=== PATIENT | male | born 1980 | race Caucasian/White ===

== ENCOUNTER 2017-09-09 14:53 | Outpatient (CLI) | payer BC, SELFPAY ==
[2017-09-09 16:39] LABS: Bilirubin Negative (Negative); Blood Negative (Negative); Clarity Clear; Glucose Negative (Negative); Ketones Negative (Negative); Leukocyte Esterase Negative (Negative); Nitrite Negative (Negative); Urobilinogen 0.2 EU/dL (Up TO 0.2)
[2017-09-09 17:51] LABS: Bilirubin, Direct 0.23 mg/dL (0.00-0.20); Bilirubin, Total 1.1 mg/dL (0.2-1.0); LDH 125 U/L (85-227)
[2017-09-11 10:15] LABS: HIV-1/2 Ag & Ab Screen Negative (NEGAT)
[2017-09-11 10:21] LABS: Haptoglobin 45 mg/dL (32-197); Rheumatoid Factor 8 IU/mL (<12.5)
[2017-09-11 10:22] LABS: Hepatitis C Ab w Rflx HCV PCR Negative (NEGAT)
[2017-09-11 12:16] LABS: ANA Interpretation Positive (NEGAT); ANA Titer Pattern SEE COMMENTS
[2017-09-11 14:45] LABS: Copper, Serum 0.72 mcg/mL (0.75-1.45); Zinc, Serum 0.88 mcg/mL (0.66-1.10)
== END 2017-09-09 14:54 ==
PROVIDERS: PCP Nurse Practitioner; Visit Provider Nurse Practitioner
DX: D69.6 Thrombocytopenia, unspecified (principal)
CPT/HCPCS: 36415; 86803; 87389; 81003; 82247; 82248; 82525; 83010; 83615; 84630; 86038; 86431

== ENCOUNTER 2017-10-09 16:45 | Outpatient (REF) | payer BC, SELFPAY ==
[2017-10-09 22:15] LABS: Anion Gap 6.9 mmol/L (3-11); BUN 15 mg/dL (7-18); CO2 29.1 mmol/L (21.0-32.0); CREATININE 1.13 mg/dL (0.70-1.30); Calcium 8.9 mg/dL (8.5-10.1); Chloride 105 mmol/L (98-107); Folate 11.7 ng/mL (8.6-20.0); Glucose 91 mg/dL (70-100); Potassium 3.8 mmol/L (3.5-5.1); Sodium 141 mmol/L (136-145)
== END 2017-10-09 16:46 ==
LOC: NCHCN 16:45
PROVIDERS: PCP Nurse Practitioner; Visit Provider Nurse Practitioner
DX: R00.2 Palpitations (principal); E87.6 Hypokalemia; E61.0 Copper deficiency; D69.6 Thrombocytopenia, unspecified
CPT/HCPCS: 80048; 82746

== ENCOUNTER 2017-10-16 16:11 | Outpatient (REF) | payer BC, SELFPAY ==
[2017-10-20 14:08] LABS: Helicobacter pylori Ag, Feces Negative (NEGAT)
== END 2017-10-16 16:31 ==
LOC: LBN 16:11
PROVIDERS: PCP Nurse Practitioner; Visit Provider Internal Medicine Hematology
DX: D69.6 Thrombocytopenia, unspecified (principal)
CPT/HCPCS: 87338

== ENCOUNTER 2017-11-09 00:42 | Outpatient (CLI) | payer BC, SELFPAY ==
--- NOTE | 2017-11-09 13:40 | MERGE_ITS ---
*[facility]* *[facility]* [address] [place] [address] Date of study: 11/09/2017 Transthoracic Echocardiography M-mode, complete 2D, complete spectral Doppler, and color Doppler *STUDY CONCLUSIONS* Summary: 1. Left ventricle: The cavity size was normal. Systolic function was hyperdynamic. The estimated ejection fraction was 65-70%. The tissue Doppler parameters were normal. 2. Mitral valve: There was mild regurgitation. 3. Right ventricle: The cavity size was normal. Wall thickness was normal. Systolic function was normal. 4. Atrial septum: No defect or patent foramen ovale was identified. 5. Pulmonary arteries: Pulmonary systolic pressure was in the range of 20mm Hg to 30mm Hg. 6. Inferior vena cava: The vessel was patent and normal in size. The respirophasic diameter changes were in the normal range (greater than or equal to 50%), consistent with normal central venous pressure. *PATIENT PRESENTATION* Height: 185.4cm ((73in) ) S/D Pressure: 117 / 63 Weight: 72.6kg ((159.7lb) ) BSA: 1.93m^2 Test start time: 01:38 PM. Test stop time: 02:39 PM. 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 This study was interpreted by [facility]. Pertinent images and digital data are archived for permanent storage and are available for subsequent review. No prior study was available for comparison. Study status: Routine. Transthoracic echocardiography. M-mode, complete 2D, complete spectral Doppler, and color Doppler. A Transthoracic Echocardiogram was performed. Scanning was performed from the parasternal, apical, subcostal, and suprasternal notch acoustic windows. Images were obtained using an [id number] cardiac ultrasound machine. Image quality was adequate. Study completion: The patient tolerated the procedure well. History: PMH: Palpitations, AV vickie reentrant tachycardia. PVCs. *CARDIAC ANATOMY* Left ventricle: The cavity size was normal. Systolic function was hyperdynamic. The estimated ejection fraction was 65-70%. The tissue Doppler parameters were normal. Diastolic parameters were normal. There was no evidence of elevated ventricular filling pressure by Doppler parameters. Aortic valve: Trileaflet. Doppler: There was no stenosis. There was no regurgitation. VTI ratio of LVOT to aortic valve: 0.87. Valve area (VTI): 2.6cm^2. Indexed valve area (VTI): 1.4cm^2/m^2. Peak velocity ratio of LVOT to aortic valve: 0.85. Valve area (Vmax): 2.6cm^2. Indexed valve area (Vmax): 1.3cm^2/m^2. Mean velocity ratio of LVOT to aortic valve: 0.85. Valve area (Vmean): 2.6cm^2. Indexed valve area (Vmean): 1.3cm^2/m^2. Mean gradient (S): 3.5mm Hg. Peak gradient (S): 5.8mm Hg. Aorta: Aortic root: The aortic root was normal in size. Ascending aorta: The ascending aorta was normal in size. Mitral valve: Doppler: There was no evidence for stenosis. There was mild regurgitation. Left atrium: The atrium was normal in size. Atrial septum: No defect or patent foramen ovale was identified. Right ventricle: The cavity size was normal. Wall thickness was normal. Systolic function was normal. Pulmonic valve: Doppler: There was no evidence for stenosis. There was mild regurgitation. Tricuspid valve: Doppler: There was mild regurgitation. Pulmonary artery: Poorly visualized. Pulmonary systolic pressure was in the range of 20mm Hg to 30mm Hg. Right atrium: The atrium was normal in size. Pericardium: There was no pericardial effusion. Systemic veins: Inferior vena cava: Well visualized. The vessel was patent and normal in size. The respirophasic diameter changes were in the normal range (greater than or equal to 50%), consistent with normal central venous pressure. Baseline ECG: Tachycardia. Measurements Left ventricle Value Reference LV ID, ED, PLAX 4.6 cm 3.5 - 6.0 LV ID, ES, PLAX 2.9 cm 2.1 - 4.0 LV PW thickness, ED, PLAX 0.8 cm LV end-diastolic volume, 1-p A2C 74 ml LV ejection fraction, 1-p A2C 70 % LV end-diastolic volume, 1-p A4C 76 ml LV ejection fraction, 1-p A4C 73 % LV e', lateral 0.153 m/sec LV E/e', lateral 4 LV e', medial 0.126 m/sec LV E/e', medial 5 LV e', average 0.14 m/sec LV E/e', average 5 Ventricular septum Value Reference IVS thickness, ED, PLAX 0.8 cm LVOT Value Reference LVOT ID, A-P 2.0 cm LVOT area 3 cm^2 LVOT peak velocity, S 1.03 m/sec LVOT mean velocity, S 0.77 m/sec LVOT VTI, S 17.4 cm LVOT peak gradient, S 4.2 mm Hg LVOT mean gradient, S 2.6 mm Hg Stroke volume (SV), LVOT DP 53 ml Stroke index (SV/bsa), LVOT DP 27 ml/m^2 Aortic valve Value Reference Aortic valve peak velocity, S 1.2 m/sec Aortic valve mean velocity, S 0.91 m/sec Aortic valve VTI, S 20.0 cm Aortic mean gradient, S 3.5 mm Hg Aortic peak gradient, S 5.8 mm Hg VTI ratio, LVOT/AV 0.87 Aortic valve area, VTI 2.6 cm^2 Velocity ratio, peak, LVOT/AV 0.85 Aortic valve area, peak velocity 2.6 cm^2 Velocity ratio, mean, LVOT/AV 0.85 Aortic valve area, mean velocity 2.6 cm^2 Aortic valve area/bsa, mean velocity 1.3 cm^2/m^2 Aorta Value Reference Aortic root ID, ED 3.3 cm Ascending aorta ID, A-P, S 3.2 cm Left atrium Value Reference LA ID, A-P, ES 2.0 cm LA ID/bsa, A-P 1.0 cm/m^2 <=2.2 LA area, ES, A4C 11.3 cm^2 8.8 - 23.4 LA area, ES, A2C 11 cm^2 LA volume/bsa, ES, 1-p A4C 13 ml/m^2 LA volume, ES, 2-p 20 ml LA volume/bsa, ES, 2-p 10 ml/m^2 LA/aortic root ratio 0.59 Mitral valve Value Reference Mitral E-wave peak velocity 0.68 m/sec Mitral A-wave peak velocity 0.91 m/sec Mitral E/A ratio, peak 0.75 Tricuspid valve Value Reference Tricuspid regurg peak velocity 2.4 m/sec Tricuspid peak RV-RA gradient 23.3 mm Hg Right atrium Value Reference RA area, ES, A4C (L) 7.7 cm^2 8.3 - 19.5 Legend: (L) and (H) fouzia values outside specified reference range. I have personally reviewed the images and have reviewed and edited the reported findings. Electronically signed by Miguel Ángel Alaniz MD 11/09/2017 16:27
== END 2017-11-09 01:02 ==
PROVIDERS: PCP Nurse Practitioner; Visit Provider Nurse Practitioner
DX: R00.2 Palpitations (principal); I47.1 Supraventricular tachycardia; I49.3 Ventricular premature depolarization; I34.0 Nonrheumatic mitral (valve) insufficiency
CPT/HCPCS: 93306

== ENCOUNTER 2018-04-26 13:00 | Outpatient (REF) | payer BC, SELFPAY ==
[2018-04-26 22:07] LABS: Anion Gap 12.5 mmol/L (3-11); BUN 11 mg/dL (7-18); CO2 26.5 mmol/L (21.0-32.0); CREATININE 0.95 mg/dL (0.70-1.30); Calcium 9.4 mg/dL (8.5-10.1); Chloride 103 mmol/L (98-107); Glucose 96 mg/dL (70-100); Sodium 142 mmol/L (136-145)
[2018-04-26 22:08] LABS: Abs Immature Grans 0.02 k/cumm (0.0-0.09); Absolute Basophil Count 0.01 k/cumm (0.0-0.2); Absolute Eosinophil Count 0.01 k/cumm (0.0-0.7); Absolute Monocyte Count 0.34 k/cumm (0.11-0.7); Absolute Neutrophil Count 4.95 k/cumm (1.2-6.7); Basophils % 0.2; Eosinophils % 0.2; HCT 47.8 % (40.0-50.0); HGB 16.5 g/dL (13.5-17.5); Immature Grans % 0.3; Lymphocytes % 17.1; Mean Corp. HGB Concentration 34.5 g/dL (32.0-36.0); Mean Corpuscular Hemoglobin 28.6 pg (27.0-33.0); Mean Platelet Volume 12.9 fL (8.0-11.0); Monocytes % 5.3; Neutrophils % 76.9; Platelet Count 110 x1000/uL (130-400); RBC 5.76 m/cumm (4.50-6.00); RBC Distribution Width 12.9 % (11.8-14.1); White Blood Cell Count 6.43 k/cumm (4.4-10.8)
== END 2018-04-26 13:20 ==
LOC: NCHCN 13:00
PROVIDERS: PCP Nurse Practitioner; Visit Provider Nurse Practitioner
DX: D69.6 Thrombocytopenia, unspecified (principal); R00.2 Palpitations
CPT/HCPCS: 80048; 85025

== ENCOUNTER 2018-06-22 14:03 | Observation (INO) | payer BC, SELFPAY ==
[2018-06-22] VITALS (8 sets, daily range): BP systolic 106–143; BP diastolic 48–93; PULSE 90–127; RESP 14–23; TEMP 36.7–37.2; O2SAT 96–100
--- NOTE | 2018-06-22 14:48 | DI.CT_ITS ---
SYMPTOMS/DIAGNOSIS: RLQ PAIN ABDOMINAL AND PELVIC CT: CT examination of the abdomen and pelvis was performed with a bolus infusion of 100 cc's of Omnipaque 350. Images obtained through the lung bases are unremarkable. The liver, spleen and pancreas appear normal. Note is made of cholelithiasis. No gallbladder wall thickening or pericholecystic fluid collection. No biliary dilatation seen. The adrenals and kidneys are unremarkable. No urinary tract calcification or obstruction. The abdominal aorta is of normal diameter and no major vascular abnormality is seen. No significant abdominal wall hernia seen. No lymphadenopathy seen. The appendix is mildly dilated, fluid and gas filled, and measuring up to about 12 mm in diameter with mildly thickened wall and some periappendiceal fat edema. The findings are suspicious for early appendicitis. No additional bowel pathology seen. CONCLUSION: Findings suspicious for early appendicitis. Clinical follow up recommended and repeat abdominal CT could be obtained if the clinical situation is unclear.
--- NOTE | 2018-06-22 14:52 | ED.GENADUL_ITS ---
Discharge Plan Disposition Patient Disposition: [facility] INPATIENT Condition: Fair Discharge Details Chief Complaint: Abd Prob Clinical Impression: Appendicitis, acute Admit Date/Time: 06/22/18 20:55 Admit Provider: Yelitza Torres Attending Provider: Yelitza Torres Primary Care Provider: Caprice Cobos ED Provider: Rima Lozada Discharge Instructions Activity:: see above Equipment/Supplies:: No Equipment Needed Diet:: As Tolerated Discharge Orders Discharge Orders: Discharge Order (Routine); Ordered 06/23/18 Ordered By: Yelitza Torres Discharge Data Discharge Date/Time-TO BE ENTERED AT DEPARTURE: 06/22/18 19:53 Medical Decision Making <Quinn Bennett NP - Last Filed: 06/23/18 10:14> Patient presenting to the emergency department for chief complaint of abdominal pain. Patient states that he started having a dull ache in the center of his stomach about 4 hours ago and then over the last hour it is migrated to the right lower quadrant and worsened. Patient denies any nausea vomiting fever chills testicular pain or other symptoms. Patient does state familial history of appendicitis with need of appendectomy. Patient denies any previous surgery or other medical conditions. Physical exam shows significant tenderness to the right lower quadrant with rebound tenderness also elicited otherwise nondiagnostic physical exam. Plan to check labs and CT image with contrast for concern of appendicitis. Pending results patient given ketorolac for pain control. Review of labs show a mild leukocytosis, mildly elevated lipase and otherwise nondiagnostic CMP. Patient still pending CT image with oral contrast and was signed out to Deanna SALAMANCA. <JADYN Sim - Last Filed: 06/24/18 10:02> Assumed care from Ryan Bennett NP with imaging pending. Primarily concern for appendicitis. The patient is resting comfortably although does appear slightly anxious. FINDINGS: Lungs: Lung bases are clear. Pleural effusion is not seen. ABDOMEN: Liver: No focal intrahepatic abnormality is identified. Gallbladder and bile ducts: Gallstones are seen in the gallbladder. There is no definite gallbladder wall thickening or pericholecystic fluid. There is no evidence of biliary ductal dilatation. Pancreas: Pancreas is unremarkable Spleen: Spleen is unremarkable Adrenals: Adrenals are unremarkable Kidneys and ureters: No radiopaque urinary tract calculi. No evidence of hydronephrosis. Stomach and bowel: Oral contrast is seen within both the large and small bowel. There is no evidence of obstruction, mass or pneumatosis. Appendix: The appendix is visualized within the right lower quadrant. It does not contain oral contrast. It does contain a small amount of air. It is upper limits of normal in size measuring 8mm ,there is apparent mild appendiceal wall thickening. No definite periappendiceal inflammatory changes are identified but clinical correlation for early appendicitis is suggested. PELVIS: Bladder: The bladder is unremarkable Reproductive: The prostate gland is mildly enlarged. ABDOMEN and PELVIS: Intraperitoneal space: No free fluid focal collections or free intraperitoneal air. Bones/joints: There is no acute or destructive bony abnormality identified. Soft tissues: Subcutaneous soft tissues are unremarkable Vasculature: Aorta is nonaneurysmal Lymph nodes: No significant adenopathy IMPRESSION: 1. Cholelithiasis. No gallbladder wall thickening, pericholecystic fluid or biliary ductal dilatation. 2. The appendix is upper limits of normal in size with possible mild appendiceal wall thickening. No definite periappendiceal inflammatory changes are identified but clinical correlation for early appendicitis suggested. 3. Prostate gland mildly enlarged. Discussed these findings with the patient. No right upper quadrant pain. History, exam and CT suggestive of acute appendicitis. I did discuss with him that he does have a large prostate and will discuss this further with his primary care with further intervention at their discretion. Will consult general surgery Consult with Dr. Torres who will come to evaluate the patient, his request 2 g of Rocephin and 500 of Flagyl IV. Patient has been n.p.o. since being here Patient evaluated by general surgeon, plan for operating room. Discussed this with the patient who is in agreement. All the questions and concerns were addressed in agreement this plan per HPI <Quinn Bennett NP - Last Filed: 06/23/18 10:14> General Mode of arrival: ambulatory . Date/Time Provider Initiated Documentation: 06/22/18 14:05 . Limitations to Documentation: no limitations . Information obtained by: patient and RN notes reviewed . History of Present Illness 38 year old M presents to the emergency department with the chief complaint of Abdominal pain, described as moderate, with intensity rated at 4. Quality is described as aching, and is localized to the abdomen. Patient started experiencing this hour(s) (4) and it has been constant. No relieving factors improve symptom(s), No exacerbating factors reported . Patient notes no other symptoms.. Patient did receive the following treatments prior to arrival, none Related Data Home Medications Medication Instructions Recorded Confirmed ibuprofen 600 mg PO Q6H PRN #30 tab 06/23/18 tramadol 50 mg PO Q6H PRN #7 tab 06/23/18 Previous Rx's Medication Instructions Recorded ibuprofen 600 mg PO Q6H PRN #30 tab 06/23/18 tramadol 50 mg PO Q6H PRN #7 tab 06/23/18 Allergies Allergy/AdvReac Type Severity Reaction Status Date / Time No Known Allergies Allergy Unverified 06/22/18 14:12 General Stated Complaint: Abd Prob WENDY: 3 Review of Systems <Quinn Bennett NP - Last Filed: 06/23/18 10:14> Constitutional Denies chills, Denies fever(s) and Reports poor appetite Cardiovascular Denies chest pain and Denies dyspnea Respiratory Denies cough and Denies dyspnea Gastrointestinal Reports as per HPI, Reports abdominal pain, Denies melena, Denies change in bowel habits, Denies constipation, Denies diarrhea, Reports nausea and Reports vomiting Genitourinary Denies hematuria, Denies difficulty urinating, Denies testicular pain, Denies urinary hesitancy, Denies urinary incontinence and Denies urinary urgency Integumentary/Breasts Denies rash PFSH <Quinn Bennett NP - Last Filed: 06/23/18 10:14> Medical History Appendicitis, acute (Acute) Chronic RLQ pain (Acute) SVT (supraventricular tachycardia) (Chronic) Gallstones (Acute) GERD (gastroesophageal reflux disease) (Chronic) Surgical History History of esophagogastroduodenoscopy (EGD) (Chronic) H/O cardiac radiofrequency ablation (Acute) Social History Smoking/Tobacco Use Status: Never Alcohol Intake: never Substance use type: does not use Do you feel safe at home: Yes Do you feel safe in your relationship?: Yes Exam <Quinn Bennett NP - Last Filed: 06/23/18 10:14> Const General: cooperative Orientation: alert, awake and oriented x3 Resp Effort & Inspection: normal respiratory effort and able to speak in complete sentences Auscultation: clear to auscultation bilaterally Cardio Rate: regular rate Rhythm: regular rhythm Heart Sounds: S1 normal and S2 normal GI Palpation: soft, no hepatosplenomegaly, not firm, no guarding, no masses, no pulsatile masses, not rigid, no splenomegaly and tender in the RLQ, at McBurney's point and with rebound tenderness; Urrutia's sign negative, psoas sign negative and Rovsing's sign negative Auscultation: normal bowel sounds Back/Spine/Pelvis Back: no CVA tenderness Neuro General: alert, awake, oriented x3, gait normal and moves all extremities Course <Quinn Bennett NP - Last Filed: 06/23/18 10:14> Vital Signs Temperature 36.7 C 06/22/18 14:07 Pulse 90 06/22/18 14:07 Respiratory Rate 20 06/22/18 14:07 Blood Pressure 125/55 L 06/22/18 14:07 Pulse Oximetry 99 06/22/18 14:07 Temperature 36.7 C 06/22/18 14:07 Temperature Source Temporal Artery Scan 06/22/18 14:07 Pulse 90 06/22/18 14:07 Respiratory Rate 20 06/22/18 14:07 Respiratory Effort Non-Labored 06/22/18 14:12 Blood Pressure 125/55 L 06/22/18 14:07 Blood Pressure Position Sitting 06/22/18 14:07 Pulse Oximetry 99 06/22/18 14:07 Oxygen Delivery Method Room Air 06/22/18 14:07 Oxygen Flow Rate 0 06/22/18 14:07 Pain Level 4 06/22/18 14:07 Sign Out <Quinn Bennett NP - Last Filed: 06/23/18 10:14> Sign Out Data: Sign Out Comment: Patient signed out to JADYN Vargas pending CT imaging disposition and any further treatment as needed. Last updated by Quinn Bennett NP at 06/22/18 15:48
[2018-06-22 14:53] LABS: Bilirubin Negative (Negative); Blood Negative (Negative); Clarity Clear; Glucose Negative (Negative); Ketones 15 mg/dL (Negative); Leukocyte Esterase Negative (Negative); Nitrite Negative (Negative); Specific Gravity 1.015 (1.005-1.025); Urobilinogen 0.2 EU/dL (Up TO 0.2)
[2018-06-22 15:06] LABS: Abs Immature Grans 0.02 k/cumm (0.0-0.09); Absolute Basophil Count 0.02 k/cumm (0.0-0.2); Basophils % 0.2; Eosinophils % 0.2; HCT 48.9 % (40.0-50.0); Immature Grans % 0.2; Lymphocytes % 12.7; Mean Corp. HGB Concentration 34.8 g/dL (32.0-36.0); Mean Corpuscular Hemoglobin 29.1 pg (27.0-33.0); Mean Corpuscular Volume 83.6 fL (80-95); Mean Platelet Volume 12.5 fL (8.0-11.0); Monocytes % 5.8; Neutrophils % 80.9; RBC 5.85 m/cumm (4.50-6.00); RBC Distribution Width 13.5 % (11.8-14.1); White Blood Cell Count 12.48 k/cumm (4.4-10.8)
[2018-06-22] MEDS: Normal Saline 1,000 ML 1000 ML IV (15:06)
[2018-06-22] MEDS: Ketorolac 30 MG/ML VIAL IVP ×2 (15:06→22:20)
[2018-06-22 15:16] LABS: Absolute Eosinophil Count 0.02 k/cumm (0.0-0.7); Absolute Lymphocyte Count 1.58 k/cumm (1.2-3.4); Absolute Monocyte Count 0.72 k/cumm (0.11-0.7); Platelet Count 99 x1000/uL (130-400)
[2018-06-22 15:22] LABS: Diff Comment PLT Morph Reviewed; RBC Morphology Normal
[2018-06-22 15:26] LABS: Lipase 402 U/L (73-393)
[2018-06-22 15:29] LABS: ALT 25 U/L (12-78); AST 22 U/L (15-37); Albumin 4.4 g/dL (3.4-5.0); Alkaline Phosphatase 76 U/L (46-116); Anion Gap 8.7 mmol/L (3-11); BUN 12 mg/dL (7-18); CO2 29.3 mmol/L (21.0-32.0); CREATININE 0.95 mg/dL (0.70-1.30); Calcium 9.5 mg/dL (8.5-10.1); Chloride 102 mmol/L (98-107); Glucose 106 mg/dL (70-100); Potassium 3.4 mmol/L (3.5-5.1); Sodium 140 mmol/L (136-145); Total Protein 7.1 g/dL (6.4-8.2)
[2018-06-22] MEDS: Omnipaque 350 MG/ML 50 ML BTL PO (17:23)
[2018-06-22] MEDS: Omnipaque 350 MG/ML 100 ML BTL IJ (17:23)
[2018-06-22] MEDS: Breeza Beverage 473 ML BTL PO (17:24)
--- NOTE | 2018-06-22 17:52 | DI.VRAD_ITS ---
EXAM: CT Abdomen and Pelvis With Contrast EXAM DATE/TIME: 06/22/2018 2:48 PM CLINICAL HISTORY: 38 years old, male; Abdominal pain TECHNIQUE: Imaging protocol: Axial computed tomography images of the abdomen and pelvis with intravenous contrast. Coronal and sagittal reformatted images were created and reviewed. COMPARISON: No relevant prior studies available. FINDINGS: Lungs: Lung bases are clear. Pleural effusion is not seen. ABDOMEN: Liver: No focal intrahepatic abnormality is identified. Gallbladder and bile ducts: Gallstones are seen in the gallbladder. There is no definite gallbladder wall thickening or pericholecystic fluid. There is no evidence of biliary ductal dilatation. Pancreas: Pancreas is unremarkable Spleen: Spleen is unremarkable Adrenals: Adrenals are unremarkable Kidneys and ureters: No radiopaque urinary tract calculi. No evidence of hydronephrosis. Stomach and bowel: Oral contrast is seen within both the large and small bowel. There is no evidence of obstruction, mass or pneumatosis. Appendix: The appendix is visualized within the right lower quadrant. It does not contain oral contrast. It does contain a small amount of air. It is upper limits of normal in size measuring 8mm , there is apparent mild appendiceal wall thickening. No definite periappendiceal inflammatory changes are identified but clinical correlation for early appendicitis is suggested. PELVIS: Bladder: The bladder is unremarkable Reproductive: The prostate gland is mildly enlarged. ABDOMEN and PELVIS: Intraperitoneal space: No free fluid focal collections or free intraperitoneal air. Bones/joints: There is no acute or destructive bony abnormality identified. Soft tissues: Subcutaneous soft tissues are unremarkable Vasculature: Aorta is nonaneurysmal Lymph nodes: No significant adenopathy IMPRESSION: 1. Cholelithiasis. No gallbladder wall thickening, pericholecystic fluid or biliary ductal dilatation. 2. The appendix is upper limits of normal in size with possible mild appendiceal wall thickening. No definite periappendiceal inflammatory changes are identified but clinical correlation for early appendicitis suggested. 3. Prostate gland mildly enlarged. Dictated and Authenticated by: Naya Young MD. Ordering:CARO Ball MD
[2018-06-22] MEDS: metroNIDAZOLE 500 MG/100 ML BAG 100 MG IVPB (19:05)
--- NOTE | 2018-06-22 19:32 | W.PM.HP.N ---
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 It was generalized in nature. Than located to RLQ. Pt has never had lower GI problems in the past. He has a BM after the contrast today adn was nl. denies fever/chills- but does feel clammy. no n/v. + appetite. He received pain meds and has no pain now. It did not radiate into back or groin. He does have a Hx of cardiac arrhythmia- about 10 yrs ago had ablation for SVT. He had some tachycardia 6m ago- but it was sinus. He had an echo in 11/26 and was nl. He had not problems w/ anesthesia when he had his no RUQ pain. no hx of fatty food intolerance. no hx of diarrhea. Review of Systems Review of Systems All systems reviewed & are unremarkable except as noted in HPI and below Constitutional Reports as per HPI, Reports system reviewed and no additional complaints, except as docu, Denies anorexia, Denies chills, Denies difficulty sleeping, Denies fatigue, Reports fever(s), Denies headache(s), Denies lethargy, Denies malaise, Denies poor appetite, Denies weakness, Denies weight gain and Denies weight loss Eyes Reports as per HPI, Reports system reviewed and no additional complaints, except as docu and Denies change in vision ENT Reports system reviewed and no additional complaints, except as docu, Reports as per HPI, Denies change in voice, Denies dental pain, Denies dysphagia, Denies dizziness, Denies facial pain, Denies headache(s) and Denies odynophagia Cardiovascular Reports as per HPI, Reports system reviewed and no additional complaints, except as docu, Denies chest pain, Denies chest pain with activity, Denies syncope, Denies leg edema and Denies dyspnea Respiratory Reports as per HPI, Reports system reviewed and no additional complaints, except as docu, Denies chest congestion, Denies cough, Denies pain with cough and Denies dyspnea Gastrointestinal Reports as per HPI, Reports system reviewed and no additional complaints, except as docu, Denies abdominal pain, Denies bloating, Denies change in bowel habits, Denies change in stool character, Denies constipation, Denies cramping, Denies dysphagia, Denies early satiety, Reports heartburn, Denies diarrhea, Denies nausea, Denies odynophagia and Denies vomiting Comments: see HPI Genitourinary Reports system reviewed and no additional complaints, except as docu Musculoskeletal Reports system reviewed and no additional complaints, except as docu, Reports as per HPI, Denies abnormal gait, Denies arthralgias and Denies muscle weakness Integumentary/Breasts Reports system reviewed and no additional complaints, except as docu, Reports as per HPI, Denies changing lesions, Denies new lesions and Denies jaundice Neurologic Reports system reviewed and no additional complaints, except as docu, Reports as per HPI, Denies abnormal speech, Denies abnormal gait, Denies dizziness, Denies syncope, Denies headache(s), Denies memory loss and Denies weakness Psychiatric Reports system reviewed and no additional complaints, except as docu, Reports as per HPI, Reports anxiety, Denies change in appetite and Denies memory loss Comments: panic attacks in past Endocrine Denies fatigue, Denies polydipsia and Denies polyuria Hematologic/Lymphatic Reports system reviewed and no additional complaints, except as docu, Denies easy bleeding and Denies easy bruising Allergic/Immunologic Denies system reviewed and no additional complaints, except as docu, Reports as per HPI and Denies urticaria PFSH Medical History Appendicitis, acute (Acute) Chronic RLQ pain (Acute) SVT (supraventricular tachycardia) (Chronic) Gallstones (Acute) GERD (gastroesophageal reflux disease) (Chronic) Surgical History History of esophagogastroduodenoscopy (EGD) (Chronic) H/O cardiac radiofrequency ablation (Acute) Social History Smoking/Tobacco Use Status: Never Alcohol Intake: never Substance use type: does not use Do you feel safe at home: Yes Do you feel safe in your relationship?: Yes Meds Home Medications Medication Instructions Recorded Confirmed Type ibuprofen 600 mg PO Q6H PRN #30 tab 06/23/18 Rx tramadol 50 mg PO Q6H PRN #7 tab 06/23/18 Rx Allergies Allergy/AdvReac Type Severity Reaction Status Date / Time No Known Allergies Allergy Unverified 06/22/18 14:12 Exam Const General: cooperative, healthy appearing, comfortable, no acute distress, well developed and well groomed Nutritional Appearance: average body habitus and well nourished Orientation: alert, awake and oriented x3 [facility] Head: normal to inspection, normocephalic and atraumatic Ears: hearing grossly normal bilaterally and external ears normal General nose exam: external nose normal Face and sinus: normal facial exam and sinuses nontender Mouth: oral mucosae normal, lip normal, tongue normal and moist mucous membranes Teeth and gingiva: dentition normal Eyes General: appearance normal, both eyes and all related structures Conjunctivae: conjunctivae normal Sclera: sclerae normal Pupils: PERRL Neck Neck: normal visual inspection and full ROM Chest Chest: normal inspection of the chest Resp Effort & Inspection: normal respiratory effort, able to speak in complete sentences, no cough, no nasal flaring, not tachypneic and no use of accessory muscles Auscultation: clear to auscultation bilaterally, no rales, no rhonchi and no wheezes Cardio Jugular venous pressure: no JVD Rate: regular rate Rhythm: regular rhythm GI Inspection: normal to inspection, no edema and non-distended Palpation: soft, no masses, nontender and No ascites Auscultation: normal bowel sounds Other: mild RLQ pain and guarding. no pain in RUQ. Skin General skin exam: no rashes or lesions noted Trauma: no lacerations or abrasions Neuro General: alert, oriented x3, oriented, gait normal, moves all extremities, no focal motor deficits and CN's II-XI intact bilaterally Cognition: normal cognition Speech: speech normal Gait: normal gait Motor: muscle tone normal throughout Extrem General: normal to inspection, full ROM and no clubbing, cyanosis or edema Psych Appearance: grossly normal and well kempt Mental Status: mental status grossly normal Speech and Movement: speech and movement normal Affect: normal affect Results Labs : 06/22/18 14:36 06/22/18 14:36 Laboratory Results - last 24 hr 06/22/18 06/22/18 06/22/18 14:35 14:36 14:36 WBC 12.48 H RBC 5.85 Hgb 17.0 Hct 48.9 MCV 83.6 MCH 29.1 MCHC 34.8 RDW 13.5 Plt Count 99 L MPV 12.5 H Immature Gran % 0.2 Neutrophils % 80.9 Lymphocytes % 12.7 Monocytes % 5.8 Eosinophils % 0.2 Basophils % 0.2 Absolute Neutrophils 10.10 H Absolute Lymphocytes 1.58 Absolute Monocytes 0.72 H Absolute Eosinophils 0.02 Absolute Basophils 0.02 Differential Comment Plt morph reviewed RBC Morphology Normal Sodium 140 Potassium 3.4 L Chloride 102 Carbon Dioxide 29.3 Anion Gap 8.7 BUN 12 Creatinine 0.95 Estimated GFR/1.73 m2 >= 60.00 Glucose 106 H Calcium 9.5 Total Bilirubin 1.0 AST 22 ALT 25 Alkaline Phosphatase 76 Total Protein 7.1 Albumin 4.4 Lipase 402 H Urine Color Urine Clarity Urine pH Ur Specific [place] Urine Protein Urine Ketones Urine Blood Urine Nitrite Urine Bilirubin Urine Urobilinogen Ur Leukocyte Esterase Urine Glucose 06/22/18 14:40 WBC RBC Hgb Hct MCV MCH MCHC RDW Plt Count MPV Immature Gran % Neutrophils % Lymphocytes % Monocytes % Eosinophils % Basophils % Absolute Neutrophils Absolute Lymphocytes Absolute Monocytes Absolute Eosinophils Absolute Basophils Differential Comment RBC Morphology Sodium Potassium Chloride Carbon Dioxide Anion Gap BUN Creatinine Estimated GFR/1.73 m2 Glucose Calcium Total Bilirubin AST ALT Alkaline Phosphatase Total Protein Albumin Lipase Urine Color Yellow Urine Clarity Clear Urine pH 6.0 Ur Specific [place] 1.015 Urine Protein Negative Urine Ketones 15 H Urine Blood Negative Urine Nitrite Negative Urine Bilirubin Negative Urine Urobilinogen 0.2 Ur Leukocyte Esterase Negative Urine Glucose Negative Last Vital Signs Temp 36.7 C 06/22/18 14:07 Pulse 90 06/22/18 14:07 Resp 20 06/22/18 14:07 BP 125/55 L 06/22/18 14:07 Pulse Ox 99 06/22/18 14:07
[2018-06-22] MEDS: Lactated Ringers 1,000 ML 80 ML IV ×2 (20:03→22:22)
[2018-06-22] MEDS: cefTRIAXone 2 GM/50 ML BAG 100 GM (20:14)
--- NOTE | 2018-06-22 20:36 | APP_PTH ---
PATIENT: Ruiz Sullivan LOC: U#:[id number] AGE/SX: 38/M ROOM: 205 RE06/22/[address]: Yelitza Torres : 1980 BED: A DIS: 06/23/2018 SPEC #: [id number] RECD: 06/23/18 12:56 STATUS: SOUAmrit REQ #: [id number] SHARMAINE: 06/22/18 20:[address]: Yelitza Torres DEPT: Surgical Specimen RECD BY: Yvette Ross ENTERED: 06/23/18 12:57 SP TYPE: Appendix OTHR DR: Caprice Cobso Tissues: 1 - APPENDIX NOT INCIDENTAL Procedures: GROSS AND MICRO LEVEL 3 Comments: [id number]
[2018-06-22] MEDS: Bupivacaine 0.25% Pres-Free 30 ML VIAL (20:41)
--- NOTE | 2018-06-22 20:53 | ROE_ITS ---
Date of service: 06/22/18 Time of Service: 20:52 Operative Note DATE OF PROCEDURE: 06/22/18 PRE-OP DIAGNOSIS: RLQ pain POST-OP DIAGNOSIS: other PROCEDURE: lap appy SURGEON: Yelitza Bajwa ANESTHESIA: GETA ESTIMATED BLOOD LOSS: 5 PATHOLOGY: other Procedure Description: PRE OP DIAGNOSIS: Acute Appendicitis POST OP DIAGNOSIS: same PROCEDURE: Laparoscopic appendectomy. SURGEON: Yelitza Bajwa DO ANESTHESIA: General. ESTIMATED BLOOD LOSS: 10 mL. COMPLICATIONS: The patient tolerated the procedure well without complications. INDICATIONS: The patient has signs and symptoms compatible with acute appendicitis and is brought to the OR for laparoscopic appendectomy, possible open procedure. Informed consent is obtained for the procedural (explained in simple layman's terms that the pt and/or family could understand) explaining risks vs benefits and alternatives to the procedure and consequences if we do not do the procedure. Risks include but are not limited to:bleeding,infections, pneumonia, blood clots/DVT/PE, anesthesia(aspiration, damage to teeth/airway/NC/CVA// INDICATIONS: The patient has signs and symptoms compatible with acute appendicitis and is brought to the OR for laparoscopic appendectomy, possible open procedure. Informed consent is obtained for the procedural (explained in simple layman's terms that the pt and/or family could understand) explaining risks vs benefits and alternatives to the procedure and consequences if we do not do the procedure. Risks include but are not limited to:bleeding,infections, pneumonia, blood clots/DVT/PE, anesthesia(aspiration, damage to teeth/airway/NC/CVA//prolonged mechanical ventilation/PTX/IV infections), damage to bowel, bladder,blood vessels, ureters. Damage to solid organs requiring removal. Infertility. Leakage from anastomosis requiring colostomy. Wound infections requirng further surgery. Scarring and disfigurement. Subsequent bowel obstructions from scar tissue. Possible open procedure if minimaly invsive procedure is being attempted. Abscess and stump appendicitis as well as others. DESCRIPTION OF PROCEDURE: The patient was brought to the operating room suite and placed in supine position. Anesthesia was administered per the Department of Anesthesia. A Hsu catheter and OG tube are placed. The patient was prepped and draped in the usual sterile fashion using ChloraPrep scrub solution. Pause for the cause was done. 30 mL of 1% buffered was used for local anesthetization. A stab incision was made in the umbilicus and the Veress was inserted. Drop test was positive and insufflation was begun. When 15 mm of pressure was noted on the monitor, the Veress was removed, a #5 port inserted. Camera inserted through the port shows no damage to underlying structures. Bowel, liver and stomach that are visualized are normal in appearance. Pelvic organs are not visualized. The appendix is inflamed, erythematous,enlarged, & distened, but does not appear to have been ruptured. There is no purulent drainage in the pelvis. It is not adhered to any adjacent structures. A 12 mm port was then placed in the suprapubic position under direct visualization following creation of a local field block as well as a second 5 mm port in the LLQ. The appendix is elevated and a rent dissected into the mesentery. The base of the appendix is healthy and will hold toya. A Endo-ANITA stapler is placed across the base of the appendix and fired and 2nd stapler placed across the mesentery and fired. The appendix is placed in a bag and brought out. There is no bleeding or enteric leakage from the staple lines. The pt does not require a drain. The abdomen was copiously ir rigated with a liter of saline. All saline is evacuated. The scope and ports are removed. Pneumoperitoneum is evacuated. The fascia under the 12 mm port is closed with 0 Vicryl. There was no bleeding from the port sites as when they removed and the pneumoperitoneum evacuated. The wounds were copiously irrigated and closed in 2 layers with 4-0 Monocryl. Sterile tape and sterile dressings are applied. The patient tolerated the procedure without complication, transferred to the recovery room in stable condition. YELITZA BAJWA DO
[2018-06-22] MEDS: Midazolam 2 MG/2 ML VIAL (20:59)
--- NOTE | 2018-06-22 21:55 | PGE_ITS ---
Date of Service Date of service: 06/22/18 Time of Service: 21:55 Assessment and Plan (1) Appendicitis, acute: Current visit: Yes Status: Acute cont w/ supportive care pain control does not require further abx pulm toilet d/c home in am Subjective Interval history since last seen: The pt is seen after their recent lap appy. The case is reviewed with the patient; findings and the procedure/surgery were reviewed with the patient and family. The Patient's condition has been reviewed with the RN. Vitals have all been stable. Pain is controlled. When pt has anxiety his heart rate goes up. also c/o shoulder pain. pt did have calderón cath in during surgery. pt wants something for sleep due to his anxiety. L: CTA b/l H: R/R/R Abdom: dressings are c/d/i Objective Objective Clinical Data: Abnormal lab results 06/22/18 06/22/18 06/22/18 Range/Units 14:35 14:36 14:36 WBC 12.48 H (4.4-10.8) k/cumm Plt Count 99 L (130-400) x1000/uL MPV 12.5 H (8.0-11.0) fL Absolute Neutrophils 10.10 H (1.2-6.7) k/cumm Absolute Monocytes 0.72 H (0.11-0.7) k/cumm Potassium 3.4 L (3.5-5.1) mmol/L Glucose 106 H (70-100) mg/dL Lipase 402 H (73-393) U/L Urine Ketones (Negative) mg/dL 06/22/18 Range/Units 14:40 WBC (4.4-10.8) k/cumm Plt Count (130-400) x1000/uL MPV (8.0-11.0) fL Absolute Neutrophils (1.2-6.7) k/cumm Absolute Monocytes (0.11-0.7) k/cumm Potassium (3.5-5.1) mmol/L Glucose (70-100) mg/dL Lipase (73-393) U/L Urine Ketones 15 H (Negative) mg/dL Vital Signs Temperature 37.2 C 06/22/18 21:41 Temperature Source Temporal Artery Scan 06/22/18 14:07 Pulse 94 H 06/22/18 21:41 Pulse Rhythm Regular 06/22/18 21:41 Respiratory Rate 18 06/22/18 21:41 Respiratory Effort Non-Labored 06/22/18 21:41 Respiratory Depth Normal 06/22/18 21:41 Respiratory Pattern Normal 06/22/18 21:41 Blood Pressure 106/63 06/22/18 21:41 Blood Pressure Position Sitting 06/22/18 14:07 Pulse Oximetry 96 06/22/18 21:41 Respiratory End-tidal CO2 39 06/22/18 21:23 Oxygen Delivery Method Room Air 06/22/18 21:41 Oxygen Flow Rate 0 06/22/18 21:41 Pain Level 3 06/22/18 21:23 Intake & Output 06/21/18 06/22/18 06/22/18 23:59 11:59 23:59 Intake Total 1700 / 1700 Output Total 100 / 100 Balance 1600 / 1600 Weight 74.843 kg Intake: IV 1700 / 1700 Output: Urine 100 / 100 Other: Urine Color Yellow Urine Appearance Clear Emesis Description None Laboratory Results WBC 12.48 k/cumm (4.4-10.8) H 06/22/18 14:36 RBC 5.85 m/cumm (4.50-6.00) 06/22/18 14:36 Hgb 17.0 g/dL (13.5-17.5) 06/22/18 14:36 Hct 48.9 % (40.0-50.0) 06/22/18 14:36 MCV 83.6 fL (80-95) 06/22/18 14:36 MCH 29.1 pg (27.0-33.0) 06/22/18 14:36 MCHC 34.8 g/dL (32.0-36.0) 06/22/18 14:36 RDW 13.5 % (11.8-14.1) 06/22/18 14:36 Plt Count 99 x1000/uL (130-400) L 06/22/18 14:36 MPV 12.5 fL (8.0-11.0) H 06/22/18 14:36 Immature Gran % 0.2 06/22/18 14:36 Neutrophils % 80.9 06/22/18 14:36 Lymphocytes % 12.7 06/22/18 14:36 Monocytes % 5.8 06/22/18 14:36 Eosinophils % 0.2 06/22/18 14:36 Basophils % 0.2 06/22/18 14:36 Absolute Neutrophils 10.10 k/cumm (1.2-6.7) H 06/22/18 14:36 Absolute Lymphocytes 1.58 k/cumm (1.2-3.4) 06/22/18 14:36 Absolute Monocytes 0.72 k/cumm (0.11-0.7) H 06/22/18 14:36 Absolute Eosinophils 0.02 k/cumm (0.0-0.7) 06/22/18 14:36 Absolute Basophils 0.02 k/cumm (0.0-0.2) 06/22/18 14:36 Differential Comment Plt morph reviewed 06/22/18 14:36 RBC Morphology Normal 06/22/18 14:36 Sodium 140 mmol/L (136-145) 06/22/18 14:36 Potassium 3.4 mmol/L (3.5-5.1) L 06/22/18 14:36 Chloride 102 mmol/L (98-107) 06/22/18 14:36 Carbon Dioxide 29.3 mmol/L (21.0-32.0) 06/22/18 14:36 Anion Gap 8.7 mmol/L (3-11) 06/22/18 14:36 BUN 12 mg/dL (7-18) 06/22/18 14:36 Creatinine 0.95 mg/dL (0.70-1.30) 06/22/18 14:36 Estimated GFR/1.73 m2 >= 60.00 (mL/min/1.73m2) 06/22/18 14:36 Glucose 106 mg/dL (70-100) H 06/22/18 14:36 Calcium 9.5 mg/dL (8.5-10.1) 06/22/18 14:36 Total Bilirubin 1.0 mg/dL (0.2-1.0) 06/22/18 14:36 AST 22 U/L (15-37) 06/22/18 14:36 ALT 25 U/L (12-78) 06/22/18 14:36 Alkaline Phosphatase 76 U/L (46-116) 06/22/18 14:36 Total Protein 7.1 g/dL (6.4-8.2) 06/22/18 14:36 Albumin 4.4 g/dL (3.4-5.0) 06/22/18 14:36 Lipase 402 U/L (73-393) H 06/22/18 14:35 Urine Color Yellow (Yellow) 06/22/18 14:40 Urine Clarity Clear 06/22/18 14:40 Urine pH 6.0 (5-8) 06/22/18 14:40 Ur Specific [place] 1.015 (1.005-1.025) 06/22/18 14:40 Urine Protein Negative mg/dL (Negative) 06/22/18 14:40 Urine Ketones 15 mg/dL (Negative) H 06/22/18 14:40 Urine Blood Negative (Negative) 06/22/18 14:40 Urine Nitrite Negative (Negative) 06/22/18 14:40 Urine Bilirubin Negative (Negative) 06/22/18 14:40 Urine Urobilinogen 0.2 EU/dL (Up TO 0.2) 06/22/18 14:40 Ur Leukocyte Esterase Negative (Negative) 06/22/18 14:40 Urine Glucose Negative mg/dL (Negative) 06/22/18 14:40
[2018-06-22] MEDS: Pantoprazole 40 MG VIAL IVP (22:20)
[2018-06-22] MEDS: Enoxaparin 40 MG/0.4 ML SYR SC (22:21)
[2018-06-22] MEDS: ACETAMINOPHEN 1,000 MG/100 ML BTL 400 MG IVPB (22:21)
[2018-06-22] MEDS: Normal Saline 1,000 ML 125 ML IV (22:47)
--- NOTE | 2018-06-22 23:29 | NUR.NOTE ---
Patient admitted to the Med/Surg unit from PACU after having appendectomy surgery done. He is conscious, alert, rational and oriented. He state he was having little having tenderness to the post operative site and also experiencing some left shoulder pain, he also state he is anxious based on his surgical intervention. He was assessed, reassured and oriented to the room. Head to toe assessment done and charted.
[2018-06-23] MEDS: Normal Saline 1,000 ML 125 ML IV (05:50)
--- NOTE | 2018-06-23 06:08 | NUR.NOTE ---
Patient refused his 4:00 and 6:00 pain medications educated about the purpose of the medication. Encouraged to use his calling light in case he starts feeling uncomfortable.
[2018-06-23 07:05] VITALS: BP 100/62; PULSE 84; RESP 14; TEMP 36.3; O2SAT 98
--- NOTE | 2018-06-23 07:54 | W.PM.PROGNOT ---
Documented by User: JADYN Haider 06/23/18 08:05 Date of Service Date of service: 06/23/18 Time of Service: 07:54 Assessment and Plan (1) Appendicitis, acute: Current visit: No Status: Acute 38 y/o male POD #1 s/p laproscopic appendectomy. PAIN- Mr. Sullivan has been declining Tylenol and Ibuprofen due to no pain. IV Fluids- Continue, will d/c once taking in more PO Urine output- 700ml of Dark robyn urine. Encouraged increasing his PO intake DIET- Regular diet, starting with breakfast. ACTIVITY- Discussed ambulating in the hallway Disposition- D/C home later this morning if pain continues to be uncontrol and he tolerates breakfast without any increase in abdominal pain, N or V. Subjective Interval history since last seen: I have no pain, other than my upper shoulders. I have been passing gas overnight. Urinating without difficulty, however he reports concern that he did not urinate much. Exam Const General: cooperative and comfortable Orientation: alert and oriented x3 Resp Effort & Inspection: normal respiratory effort, no audible wheezes and no cough Cardio Rate: regular rate Rhythm: regular rhythm Heart Sounds: S1 normal, S2 normal and no murmurs GI Inspection: normal to inspection, non-distended and incision (3 port sits; skin a fix present. ) Palpation: soft, no guarding and nontender Objective Objective Clinical Data: Abnormal lab results 06/22/18 06/22/18 06/22/18 Range/Units 14:35 14:36 14:36 WBC 12.48 H (4.4-10.8) k/cumm Plt Count 99 L (130-400) x1000/uL MPV 12.5 H (8.0-11.0) fL Absolute Neutrophils 10.10 H (1.2-6.7) k/cumm Absolute Monocytes 0.72 H (0.11-0.7) k/cumm Potassium 3.4 L (3.5-5.1) mmol/L Glucose 106 H (70-100) mg/dL Lipase 402 H (73-393) U/L Urine Ketones (Negative) mg/dL 06/22/18 Range/Units 14:40 WBC (4.4-10.8) k/cumm Plt Count (130-400) x1000/uL MPV (8.0-11.0) fL Absolute Neutrophils (1.2-6.7) k/cumm Absolute Monocytes (0.11-0.7) k/cumm Potassium (3.5-5.1) mmol/L Glucose (70-100) mg/dL Lipase (73-393) U/L Urine Ketones 15 H (Negative) mg/dL Vital Signs Temperature 36.3 C L 06/23/18 07:05 Temperature Source Tympanic 06/23/18 07:05 Pulse 84 06/23/18 07:05 Pulse Rhythm Regular 06/22/18 21:41 Respiratory Rate 14 06/23/18 07:05 Respiratory Effort Non-Labored 06/22/18 21:41 Respiratory Depth Normal 06/22/18 21:41 Respiratory Pattern Normal 06/22/18 21:41 Blood Pressure 100/62 06/23/18 07:05 Blood Pressure Position Sitting 06/22/18 14:07 Pulse Oximetry 98 06/23/18 07:05 Respiratory End-tidal CO2 39 06/22/18 21:23 Oxygen Delivery Method Room Air 06/23/18 07:05 Oxygen Flow Rate 0 06/23/18 07:05 Pain Level 3 06/22/18 21:23 Intake & Output 06/22/18 06/23/18 06/23/18 18:59 06:59 18:59 Intake Total 1000 / 2836.583 1836.583 / 2836.583 Output Total 700 / 700 Balance 1000 / 2136.583 1136.583 / 2136.583 Weight 74.843 kg 74.843 kg Intake: IV 1000 / 2836.583 1836.583 / 2836.583 Output: Urine 700 / 700 Other: Urine Color Pale Yellow Urine Appearance Clear Urine Odor None Comment patient state voiding was a little painful Emesis Description None Voiding Methods Urinal Laboratory Results WBC 12.48 k/cumm (4.4-10.8) H 06/22/18 14:36 RBC 5.85 m/cumm (4.50-6.00) 06/22/18 14:36 Hgb 17.0 g/dL (13.5-17.5) 06/22/18 14:36 Hct 48.9 % (40.0-50.0) 06/22/18 14:36 MCV 83.6 fL (80-95) 06/22/18 14:36 MCH 29.1 pg (27.0-33.0) 06/22/18 14:36 MCHC 34.8 g/dL (32.0-36.0) 06/22/18 14:36 RDW 13.5 % (11.8-14.1) 06/22/18 14:36 Plt Count 99 x1000/uL (130-400) L 06/22/18 14:36 MPV 12.5 fL (8.0-11.0) H 06/22/18 14:36 Immature Gran % 0.2 06/22/18 14:36 Neutrophils % 80.9 06/22/18 14:36 Lymphocytes % 12.7 06/22/18 14:36 Monocytes % 5.8 06/22/18 14:36 Eosinophils % 0.2 06/22/18 14:36 Basophils % 0.2 06/22/18 14:36 Absolute Neutrophils 10.10 k/cumm (1.2-6.7) H 06/22/18 14:36 Absolute Lymphocytes 1.58 k/cumm (1.2-3.4) 06/22/18 14:36 Absolute Monocytes 0.72 k/cumm (0.11-0.7) H 06/22/18 14:36 Absolute Eosinophils 0.02 k/cumm (0.0-0.7) 06/22/18 14:36 Absolute Basophils 0.02 k/cumm (0.0-0.2) 06/22/18 14:36 Differential Comment Plt morph reviewed 06/22/18 14:36 RBC Morphology Normal 06/22/18 14:36 Sodium 140 mmol/L (136-145) 06/22/18 14:36 Potassium 3.4 mmol/L (3.5-5.1) L 06/22/18 14:36 Chloride 102 mmol/L (98-107) 06/22/18 14:36 Carbon Dioxide 29.3 mmol/L (21.0-32.0) 06/22/18 14:36 Anion Gap 8.7 mmol/L (3-11) 06/22/18 14:36 BUN 12 mg/dL (7-18) 06/22/18 14:36 Creatinine 0.95 mg/dL (0.70-1.30) 06/22/18 14:36 Estimated GFR/1.73 m2 >= 60.00 (mL/min/1.73m2) 06/22/18 14:36 Glucose 106 mg/dL (70-100) H 06/22/18 14:36 Calcium 9.5 mg/dL (8.5-10.1) 06/22/18 14:36 Total Bilirubin 1.0 mg/dL (0.2-1.0) 06/22/18 14:36 AST 22 U/L (15-37) 06/22/18 14:36 ALT 25 U/L (12-78) 06/22/18 14:36 Alkaline Phosphatase 76 U/L (46-116) 06/22/18 14:36 Total Protein 7.1 g/dL (6.4-8.2) 06/22/18 14:36 Albumin 4.4 g/dL (3.4-5.0) 06/22/18 14:36 Lipase 402 U/L (73-393) H 06/22/18 14:35 Urine Color Yellow (Yellow) 06/22/18 14:40 Urine Clarity Clear 06/22/18 14:40 Urine pH 6.0 (5-8) 06/22/18 14:40 Ur Specific [place] 1.015 (1.005-1.025) 06/22/18 14:40 Urine Protein Negative mg/dL (Negative) 06/22/18 14:40 Urine Ketones 15 mg/dL (Negative) H 06/22/18 14:40 Urine Blood Negative (Negative) 06/22/18 14:40 Urine Nitrite Negative (Negative) 06/22/18 14:40 Urine Bilirubin Negative (Negative) 06/22/18 14:40 Urine Urobilinogen 0.2 EU/dL (Up TO 0.2) 06/22/18 14:40 Ur Leukocyte Esterase Negative (Negative) 06/22/18 14:40 Urine Glucose Negative mg/dL (Negative) 06/22/18 14:40 Documented by User: Yelitza Torres DO 06/27/18 21:59 Assessment and Plan (1) Appendicitis, acute: Current visit: No Status: Acute pt seen and examined by myself agree w/ above. plan d/c later today
--- NOTE | 2018-06-23 11:23 | DSE_ITS ---
Date of service: 06/23/18 Time of Service: 11:23 DS: Diagnosis Discharge Diagnosis (1) Appendicitis, acute: Status: Acute (2) Gallstones: Status: Acute (3) GERD (gastroesophageal reflux disease): Status: Chronic Discharge Plan Disposition Patient Disposition: HOME Condition: Fair Discharge Details Chief Complaint: Abd Prob Reason For Visit: ACUTE APPEN Admit Date/Time: 06/22/18 20:55 Admit Provider: Yelitza Torres Attending Provider: Yelitza Torres Primary Care Provider: Caprice Cobos ED Provider: Rima Lozada [facility] Course Hospital Course: pt came into ED w/ early appendicitis. Underwent uncomplicated lap appy. kept overnight. doing well today. eating. up walking. min pain meds. d/c to home w/ routine cares. Home Meds and New Rx's Prescriptions: New tramadol 50 mg tablet 50 mg PO Q6H PRN (Reason: pain) Qty: 7 RF: 0 ibuprofen 600 mg tablet 600 mg PO Q6H PRN (Reason: pain) Qty: 30 RF: 0 Discharge Instructions Instructions: Appendicitis (DC) Additional Instructions: Care after Surgery -You should walk frequently, gradually, increasing the distance. You may climb stairs, just go slowly. -You can take Advil 600mg 3 times a day with food for the first week for pain; you may take your prescription medication as prescribed-in addition to the Advil. Discontinue Advil if it hurts your stomach. Do not take Advil if you are intolerant to aspirin products or have stomach problems. ? Use an ice bag for the first 72 hours. This helps to decrease swelling, which causes pain. It is normal to be more sore/painful and swollen towards the end of the day and first thing in the morning. ? Use milk of magnesia or prune juice to prevent constipation (this is a par ticular side effect of pain medication). Do not allow yourself to become constipated. ? Avoi ? Start out eating very small, bland amounts of food. Do not take pain pills on an empty stomach. - You can remove the band-aids and take a shower 24 hours after surgery. There will be some narrow strips of tape across your incisions (under the band- aids). DO NOT REMOVE THESE. It is all right if they get wet. They will be removed in the doctor?s office. ? Do not go swimming or sit in a hot tube for two weeks. ? Replace the band-aids with clean, dry ones or leave them off. ? There are no stitches to remove. ? Do not drive your car for 12-2 days of ir taking narcotics. And, then only if you have no pain and can move freely. Do not drive if you are taking pain narcotic pain medications. ? You may resume sexual activity whenever pain and soreness subside in 2 weeks. ? Do no lift anything over 5 lbs for the first 10 days. Minimize strenuous activity for the next two weeks. ? You may return to work in one week, or when you feel able ? You should return to Dr. Torres?s office for a post-op appointment about one week after surgery. When to Call the Office: ? If the incision becomes red or swollen, or there is more than a little drainage from it. ? If you develop a temperature higher than 100.5 F. ? If your eyes turn yellow ? Vomiting and can?t keep fluids down Stand Alone Forms: Nursing Discharge Form Referrals: Yelitza Torres, [OSTEOPATHIC DOCTOR] - 07/01/18 11:45 am Activity:: see above Equipment/Supplies:: No Equipment Needed Diet:: As Tolerated Discharge Orders Discharge Orders: Discharge Order (Routine); Ordered 06/23/18 Ordered By: Yelitza Torres Discharge Data Discharge Date/Time-TO BE ENTERED AT DEPARTURE: 06/23/18 12:56 DS: Data Vitals/I&O Vitals and I&O: Vital Signs Temperature 36.3 C L 06/23/18 07:05 Temperature Source Tympanic 06/23/18 07:05 Pulse 84 06/23/18 07:05 Pulse Rhythm Regular 06/23/18 08:56 Respiratory Rate 14 06/23/18 07:05 Respiratory Effort Non-Labored 06/23/18 08:56 Respiratory Depth Normal 06/23/18 08:56 Respiratory Pattern Normal 06/23/18 08:56 Blood Pressure 100/62 06/23/18 07:05 Blood Pressure Position Sitting 06/22/18 14:07 Pulse Oximetry 98 06/23/18 07:05 Respiratory End-tidal CO2 39 06/22/18 21:23 Oxygen Delivery Method Room Air 06/23/18 07:05 Oxygen Flow Rate 0 06/23/18 07:05 Pain Level 3 06/22/18 21:23 Intake & Output 06/22/18 06/22/18 06/23/18 11:59 23:59 11:59 Intake Total 1955.333 / 1955.333 881.25 / 881.25 Output Total 300 / 300 400 / 400 Balance 1655.333 / 1655.333 481.25 / 481.25 Weight 74.843 kg Intake: IV 5.333 / 5.333 881.25 / 881.25 Output: Urine 300 / 300 400 / 400 Other: Urine Color Yellow Pale Yellow Urine Appearance Clear Urine Odor None None Comment patient state voiding was a little painful Emesis Description None Voiding Methods Urinal Urinal Labs on day of discharge: Labs from last 24 hours 06/22/18 06/22/18 06/22/18 14:40 14:36 14:36 WBC 12.48 H RBC 5.85 Hgb 17.0 Hct 48.9 MCV 83.6 MCH 29.1 MCHC 34.8 RDW 13.5 Plt Count 99 L MPV 12.5 H Immature Gran % 0.2 Neutrophils % 80.9 Lymphocytes % 12.7 Monocytes % 5.8 Eosinophils % 0.2 Basophils % 0.2 Absolute Neutrophils 10.10 H Absolute Lymphocytes 1.58 Absolute Monocytes 0.72 H Absolute Eosinophils 0.02 Absolute Basophils 0.02 Differential Comment Plt morph reviewed RBC Morphology Normal Sodium 140 Potassium 3.4 L Chloride 102 Carbon Dioxide 29.3 Anion Gap 8.7 BUN 12 Creatinine 0.95 Estimated GFR/1.73 m2 >= 60.00 Glucose 106 H Calcium 9.5 Total Bilirubin 1.0 AST 22 ALT 25 Alkaline Phosphatase 76 Total Protein 7.1 Albumin 4.4 Lipase Urine Color Yellow Urine Clarity Clear Urine pH 6.0 Ur Specific Jackson 1.015 Urine Protein Negative Urine Ketones 15 H Urine Blood Negative Urine Nitrite Negative Urine Bilirubin Negative Urine Urobilinogen 0.2 Ur Leukocyte Esterase Negative Urine Glucose Negative 06/22/18 14:35 WBC RBC Hgb Hct MCV MCH MCHC RDW Plt Count MPV Immature Gran % Neutrophils % Lymphocytes % Monocytes % Eosinophils % Basophils % Absolute Neutrophils Absolute Lymphocytes Absolute Monocytes Absolute Eosinophils Absolute Basophils Differential Comment RBC Morphology Sodium Potassium Chloride Carbon Dioxide Anion Gap BUN Creatinine Estimated GFR/1.73 m2 Glucose Calcium Total Bilirubin AST ALT Alkaline Phosphatase Total Protein Albumin Lipase 402 H Urine Color Urine Clarity Urine pH Ur Specific Jackson Urine Protein Urine Ketones Urine Blood Urine Nitrite Urine Bilirubin Urine Urobilinogen Ur Leukocyte Esterase Urine Glucose PFSH Medical History Appendicitis, acute (Acute) Chronic RLQ pain (Acute) SVT (supraventricular tachycardia) (Chronic) Gallstones (Acute) GERD (gastroesophageal reflux disease) (Chronic) Surgical History History of esophagogastroduodenoscopy (EGD) (Chronic) H/O cardiac radiofrequency ablation (Acute) Social History Smoking/Tobacco Use Status: Never Alcohol Intake: never Substance use type: does not use Do you feel safe at home: Yes Do you feel safe in your relationship?: Yes
--- NOTE | 2018-06-23 14:22 | PDOC.ANES ---
Date of service: 06/23/18 Time of Service: 14:22 Anesthesia Note Report Anesthesia Note: Saw Ruiz prior to discharge for mild uvula discomfort. Ruiz had his post op evaluation completed this morning by me and was doing well with only the complaint of some referred shoulder pain, likely from insufflation CO2. I saw him again around 1245 today with a mild sore throat. Upon evaluation noted a slightly swollen and noticably red uvula with no necrotic areas noted. He declines any difficulty swallowing food or liquid. I discussed that this was likely due to placement of the endotracheal tube for surgery, despite using glide scope with no reported difficulty from the senior quality assurance analyst. I advised him that he is fine to go home and use salt water gargle as well as warm fluids. He was advised to followup here or with his PCP if he develops a worsening sore throat or ability to swallow and fever/chills as he may need antibiotics at that point. He is in agreement with this plan and will be discharged home.
--- NOTE | 2018-06-23 14:29 | ANES_ITS ---
Date of service: 06/23/18 Time of Service: 14:22 Anesthesia Note Report Anesthesia Note: Saw Ruiz prior to discharge for mild uvula discomfort. Ruiz had his post op evaluation completed this morning by me and was doing well with only the complaint of some referred shoulder pain, likely from insufflation CO2. I saw him again around 1245 today with a mild sore throat. Upon evaluation noted a slightly swollen and noticably red uvula with no necrotic areas noted. He declines any difficulty swallowing food or liquid. I discussed that this was likely due to placement of the endotracheal tube for surgery, despite using glide scope with no reported difficulty from the card cleaner. I advised him that he is fine to go home and use salt water gargle as well as warm fluids. He was advised to followup here or with his PCP if he develops a worsening sore throat or ability to swallow and fever/chills as he may need antibiotics at that point. He is in agreement with this plan and will be discharged home.
== END 2018-06-23 12:56 | disposition home or self-care (01) ==
LOC: ER 19:10 → SUR 19:44 → MS 21:41
PROVIDERS: Nurse Practitioner Family; Admitting Provider Surgery; Emergency Provider Physician Assistant; PCP Nurse Practitioner Family; Visit Provider Surgery
PROC: 0DTJ4ZZ Resection of Appendix, Percutaneous Endoscopic Approach (ICD-10-PCS; CPT 44970; principal; 2018-06-22 20:00)
DX: K35.890 Other acute appendicitis without perforation or gangrene (principal); K80.20 Calculus of gallbladder without cholecystitis without obstruction; K21.9 Gastro-esophageal reflux disease without esophagitis; F41.9 Anxiety disorder, unspecified; J02.9 Acute pharyngitis, unspecified; Y83.8 Other surgical procedures as the cause of abnormal reaction of the patient, or of later complication, without mention of misadventure at the time of the procedure; Y70.8 Miscellaneous anesthesiology devices associated with adverse incidents, not elsewhere classified
CPT/HCPCS: 44970; 36415; 80053; 83690; 96361; 96365; 99223; 99238; 99285; J1650; NC; 74177; 81003; 85025; 88304; 99284; G0378; J0131; J1885; J2250; J2405; J3010; J3490; Q9967

== ENCOUNTER 2018-06-28 16:43 | Emergency (ER) | payer BC, SELFPAY ==
[2018-06-28 16:47] VITALS: BP 113/57; PULSE 128; RESP 20; TEMP 36.8; O2SAT 99
[2018-06-28 17:10] LABS: Bilirubin Negative (Negative); Blood Negative (Negative); Clarity Clear; Glucose Negative (Negative); Ketones Negative (Negative); Leukocyte Esterase Negative (Negative); Nitrite Negative (Negative); Urobilinogen 0.2 EU/dL (Up TO 0.2)
--- NOTE | 2018-06-28 17:25 | DI.RAD_ITS ---
SYMPTOM/DIAGNOSIS: RECENT APPENDECTOMY, NOW FEBRILE, COUGH PA AND LATERAL CHEST: Comparison is made with 09/02/17. The heart size is normal. The lungs are clear. No infiltrate, effusion or pneumothorax is seen. Spine and ribs appear intact. IMPRESSION: Negative chest xray.
[2018-06-28 17:43] LABS: Abs Immature Grans 0.03 k/cumm (0.0-0.09); Absolute Basophil Count 0.01 k/cumm (0.0-0.2); Absolute Lymphocyte Count 0.66 k/cumm (1.2-3.4); Absolute Monocyte Count 0.69 k/cumm (0.11-0.7); Basophils % 0.1; Eosinophils % 0.3; HCT 48.2 % (40.0-50.0); HGB 17.1 g/dL (13.5-17.5); Immature Grans % 0.2; Lymphocytes % 4.6; Mean Corp. HGB Concentration 35.5 g/dL (32.0-36.0); Mean Corpuscular Hemoglobin 29.2 pg (27.0-33.0); Mean Corpuscular Volume 82.3 fL (80-95); Mean Platelet Volume 12.7 fL (8.0-11.0); Monocytes % 4.8; Platelet Count 101 x1000/uL (130-400); RBC 5.86 m/cumm (4.50-6.00); RBC Distribution Width 13.2 % (11.8-14.1); White Blood Cell Count 14.34 k/cumm (4.4-10.8)
[2018-06-28 17:47] LABS: Absolute Eosinophil Count 0.04 k/cumm (0.0-0.7); Absolute Neutrophil Count 12.91 k/cumm (1.2-6.7)
[2018-06-28 17:49] LABS: ALT 36 U/L (12-78); AST 19 U/L (15-37); Albumin 4.2 g/dL (3.4-5.0); Alkaline Phosphatase 78 U/L (46-116); Anion Gap 9.1 mmol/L (3-11); BUN 15 mg/dL (7-18); Bilirubin, Total 0.9 mg/dL (0.2-1.0); CO2 26.9 mmol/L (21.0-32.0); Calcium 9.7 mg/dL (8.5-10.1); Chloride 101 mmol/L (98-107); Glucose 104 mg/dL (70-100); Potassium 3.8 mmol/L (3.5-5.1); Sodium 137 mmol/L (136-145); Total Protein 7.1 g/dL (6.4-8.2)
[2018-06-28 17:57] LABS: Lipase 247 U/L (73-393)
--- NOTE | 2018-06-28 17:58 | ED.GENADUL_ITS ---
Discharge Plan Disposition Patient Disposition: HOME Condition: Stable Discharge Details Chief Complaint: Fever Clinical Impression: Fever, Colitis, Colitis due to Clostridium difficile Primary Care Provider: Caprice Cobos ED Provider: Eliel Walker Home Meds and New Rx's Prescriptions: No Action vancomycin 125 mg capsule 125 mg PO QID 10 Days Qty: 40 RF: 0 tramadol 50 mg tablet 50 mg PO Q6H PRN (Reason: pain) Qty: 7 RF: 0 ibuprofen 600 mg tablet 600 mg PO Q6H PRN (Reason: pain) Qty: 30 RF: 0 Discharge Instructions Instructions: Fever in Adults (ED) Additional Instructions: Please take Tylenol and Motrin as needed for fever. If you notice any worsening of your symptoms, or any new symptoms such as vomiting, diarrhea, fever, chills, shortness of breath, chest pain, numbness, weakness, or fainting , please return immediately to the emergency department for reevaluation. Please follow up with your primary care provider as soon as possible for reassessment and reevaluation. As always, it was a pleasure participating in your medical care today. Referrals: Yelitza Torres DO [OSTEOPATHIC DOCTOR] - Discharge Data Discharge Date/Time-TO BE ENTERED AT DEPARTURE: 06/28/18 21:10 Medical Decision Making This is a 38-year-old male who presents today for evaluation of fever. He had an appendectomy at 5 days ago, has been doing very well since then until today when he felt ill, and developed a fever. He has not been eating much over the last few days, but has had no vomiting or abdominal pain. Exam demonstrates mild tachycardia. Minimal abdominal tenderness on notable deep palpation of the right lower quadrant. This does feel postoperatively appropriate though. We will start with laboratory work-up, and then further evaluate with potential imaging as indicated. The patient was sent in by the surgeon Dr. Mike, and so we will contact her for her specific request. Laboratory work-up did demonstrate an elevated white count with a very mild left shift. Chest x-ray per virtual radiology demonstrated no evidence of acute infiltrate or pneumonia. Urinalysis is negative for signs of infection. CT scan did show suggestion of mild diffuse colonic wall thickening. No evidence of abscess. We did contact Dr. Mike, she came and assessed the patient. She feels that he looks very clinically well, and would like the patient to be discharged home at this time. Additionally the patient is requesting discharge states that he wants to go home right now. The patient has no clinical history of bloody stools or diarrhea. His abdomen continues to remain nontender. Dr. Mike has put in stool studies and states that she will follow-up with these. She will follow the patient closely on an outpatient basis. She has no additional recommendations. Patient did again spike a mild fever, he was given Toradol which she initially refused and stated he just wanted to go home and take Motrin, and eventually accepted. Patient will be discharged home at the recommendation of the surgeon. I discussed this plan with the patient as well as that his stool studies are not yet back he will need to follow-up closely with his surgeon in regard to this and the patient understands. The patient will be given a lab slip for stool studies. I have extensively reviewed the treatment plan and discharge instructions with the patient and their family. I have addressed all patient concerns at this time. The patient and family was made aware of what symptoms to monitor for that would warrant a return to the emergency department. Discussed the plan with the patient and family, they demonstrate verbal understanding and agreement with our assessment and plan at this time. Sometime after the patient was discharged stool study did come back positive for C. difficile. I did contact Dr. Mike and discussed this with her. She states that she will call the patient and start him on antibiotics. I did offer to make a call in prescription for the patient, however she stated that she will contact him herself and make these prescriptions. EXAM: CT Abdomen and Pelvis Without Contrast EXAM DATE/TIME: 06/28/2018 7:25 PM CLINICAL HISTORY: 38 years old, male; Signs and symptoms; Prior surgery; Surgery date: 3-7 days post-operative; Surgery type: S/P appe on Thursday. Fever, no abd pain TECHNIQUE: Imaging protocol: Axial computed tomography images of the abdomen and pelvis without contrast. Coronal and sagittal reformatted images were created and reviewed. Radiation optimization: All CT scans at this facility use at least one of these dose optimization techniques: automated exposure control; mA and/or kV adjustment per patient size (includes targeted exams where dose is matched to clinical indication); or iterative reconstruction. COMPARISON: CT ABDOMEN PELVIS W 06/22/2018 5:20 PM FINDINGS: Lungs: Visualized lung bases are clear. Heart: Heart size normal. ABDOMEN: Liver: Normal size and contour. No mass lesions. Gallbladder and bile ducts: 9 mm calcified gallstone in the gallbladder lumen. No CT signs of cholecystitis or biliary obstruction. Pancreas: Normal. No inflammatory changes or ductal dilation. Spleen: Normal. No splenomegaly. Adrenals: Normal. No adrenal mass. Kidneys and ureters: Normal. No hydronephrosis or hydroureter. No urinary tract stones are identified. Stomach and bowel: The visualized distal esophagus and stomach are normal. The small bowel is normal with no evidence of obstruction. Diffuse mild colonic wall thickening consistent with colitis. There is also moderate colonic stool present suggesting an underlying element of constipation. Appendix: Surgical sutures along the medial base of the cecum suggesting prior appendectomy. PELVIS: Bladder: Unremarkable as visualized. Reproductive: Unremarkable as visualized. ABDOMEN and PELVIS: Intraperitoneal space: No free fluid or air. Bones/joints: No acute osseous abnormalities. Soft tissues: Unremarkable. Vasculature: Normal. No abdominal aortic aneurysm. Lymph nodes: No adenopathy. IMPRESSION: 1. Mild diffuse colonic wall thickening suggesting colitis. No evidence of bowel perforation or abscess. 2. Moderate colonic stool suggesting an element of constipation. 3. 9 mm calcified gallstone without CT evidence of cholecystitis or biliary obstruction. Dictated and Authenticated by: Jefferson Bhardwaj MD. Ordering:AURELIO Julian MD HPI General Date/Time Provider Initiated Documentation: 06/28/18 16:48 . HPI Narrative: This is a 38-year-old male with a past medical history of an appendectomy 5 days ago, who presents today for evaluation of fever. Patient states that since 11 AM he has been notably malaise, is felt generalized weakness and fatigue. He feels sick but denies any abdominal pain, chest pain, cough, shortness of breath or leg pain. He does admit to a mild amount of dysuria. He denies any hematuria. The patient has taken NSAIDs for control of his fever. He denies any other complaints at this time. He states that he did contact his surgeon Dr. Torres, who recommended that he come in for further evaluation. He has had a notably decreased appetite but has had no vomiting. He denies any abdominal tenderness in general, or other complaints. Related Data Home Medications Medication Instructions Recorded Confirmed ibuprofen 600 mg PO Q6H PRN #30 tab 06/23/18 tramadol 50 mg PO Q6H PRN #7 tab 06/23/18 vancomycin 125 mg capsule 125 mg PO QID 10 Days #40 cap 06/29/18 06/29/18 Previous Rx's Medication Instructions Recorded ibuprofen 600 mg PO Q6H PRN #30 tab 06/23/18 tramadol 50 mg PO Q6H PRN #7 tab 06/23/18 vancomycin 125 mg capsule 125 mg PO QID 10 Days #40 cap 06/29/18 Allergies Allergy/AdvReac Type Severity Reaction Status Date / Time No Known Allergies Allergy Unverified 06/22/18 14:12 General Stated Complaint: Fever WENDY: 3 Review of Systems Review of Systems All systems reviewed & are unremarkable except as noted in HPI and below PFSH Medical History Colon wall thickening (Acute) Elevated WBC count (Acute) Fever (Acute) Appendicitis, acute (Acute) Chronic RLQ pain (Acute) SVT (supraventricular tachycardia) (Chronic) Gallstones (Acute) GERD (gastroesophageal reflux disease) (Chronic) Surgical History History of esophagogastroduodenoscopy (EGD) (Chronic) H/O cardiac radiofrequency ablation (Acute) Social History Smoking/Tobacco Use Status: Never Alcohol Intake: never Substance use type: does not use Do you feel safe at home: Yes Do you feel safe in your relationship?: Yes Exam Narrative Exam Narrative: 1.Const: Well-nourished, Well-developed, appearing stated age 2.Eyes: PERRL, no conjunctival injection, and symmetrical lids. 3.ENT: Atraumatic external nose and ears. Moist MM. Neck: Symmetric, trachea midline, No thyromegaly. 4.CVS: +S1/S2, No murmurs or gallops. Peripheral pulses 2+ and equal in all extremities. Brisk capillary refill in all extremities. 5.RESP: Unlabored respiratory effort. Clear to auscultation bilaterally. No wheezes rales or rhonchi 6.GI: Soft, Nontender/Nondistended, No hepatosplenomegaly. No guarding or rebound. Minimal tenderness in the right lower quadrant with significant palpation, no generalized or severe tenderness though. The patient's incision sites are clean dry and intact, no drainage, no discharge, no significant erythema. No flank or CVA tenderness. Negative obturator or psoas sign. 7.MSK: Normocephalic/Atraumatic, Extremities w/o deformity or ttp No cyanosis or clubbing, Normal movement of all extremities 8.Skin: Warm, Dry. No rashes or lesions. 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 Sensation grossly intact, no focal neurologic deficits. 10.Psych: (AAO) x3. Appropriate mood and affect Course Vital Signs Temperature 36.8 C 06/28/18 16:47 Pulse 128 H 06/28/18 16:47 Respiratory Rate 06/28/18 16:47 Blood Pressure 113/57 L 06/28/18 16:47 Pulse Oximetry 99 06/28/18 16:47 Temperature 36.8 C 06/28/18 16:47 Temperature Source Temporal Artery Scan 06/28/18 16:47 Pulse 128 H 06/28/18 16:47 Respiratory Rate 06/28/18 16:47 Respiratory Effort 06/28/18 16:51 Blood Pressure 113/57 L 06/28/18 16:47 Pulse Oximetry 99 06/28/18 16:47 Oxygen Delivery Method Room Air 06/28/18 16:47 Oxygen Flow Rate 0 06/28/18 16:47 Pain Level 0 06/28/18 16:47 Lab/Test Results Lab/Test Results: Laboratory Tests Range/Units 06/28/18 06/28/18 06/28/18 17:03 17:27 17:27 WBC (4.4-10.8) k/cumm 14.34 H RBC (4.50-6.00) m/cumm 5.86 Hgb (13.5-17.5) g/dL 17.1 Hct (40.0-50.0) % 48.2 MCV (80-95) fL 82.3 MCH (27.0-33.0) pg 29.2 MCHC (32.0-36.0) g/dL 35.5 RDW (11.8-14.1) % 13.2 Plt Count (130-400) x1000/uL 101 L MPV (8.0-11.0) fL 12.7 H Immature Gran % 0.2 Neutrophils % 90.0 Lymphocytes % 4.6 Monocytes % 4.8 Eosinophils % 0.3 Basophils % 0.1 Absolute Neutrophils (1.2-6.7) k/cumm 12.91 H Absolute Lymphocytes (1.2-3.4) k/cumm 0.66 L Absolute Monocytes (0.11-0.7) k/cumm 0.69 Absolute Eosinophils (0.0-0.7) k/cumm 0.04 Absolute Basophils (0.0-0.2) k/cumm 0.01 Sodium (136-145) mmol/L 137 Potassium (3.5-5.1) mmol/L 3.8 Chloride (98-107) mmol/L 101 Carbon Dioxide (21.0-32.0) mmol/L 26.9 Anion Gap (3-11) mmol/L 9.1 BUN (7-18) mg/dL 15 Creatinine (0.70-1.30) mg/dL 1.10 Estimated GFR/1.73 m2 (mL/min/1.73m2) >= 60.00 Glucose (70-100) mg/dL 104 H Calcium (8.5-10.1) mg/dL 9.7 Total Bilirubin (0.2-1.0) mg/dL 0.9 AST (15-37) U/L 19 ALT (12-78) U/L 36 Alkaline Phosphatase (46-116) U/L 78 Total Protein (6.4-8.2) g/dL 7.1 Albumin (3.4-5.0) g/dL 4.2 Urine Color (Yellow) Yellow Urine Clarity Clear Urine pH (5-8) 7.0 Ur Specific [place] (1.005-1.025) 1.010 Urine Protein (Negative) mg/dL Negative Urine Ketones (Negative) mg/dL Negative Urine Blood (Negative) Negative Urine Nitrite (Negative) Negative Urine Bilirubin (Negative) Negative Urine Urobilinogen (Up TO 0.2) EU/dL 0.2 Ur Leukocyte Esterase (Negative) Negative Urine Glucose (Negative) mg/dL Negative
--- NOTE | 2018-06-28 18:24 | DI.VRAD_ITS ---
EXAM: XR Chest, 2 Views EXAM DATE/TIME: 06/28/2018 5:26 PM CLINICAL HISTORY: 38 years old, male; Signs and symptoms; Fever; Patient HX: Recent appendectomy, now febrile; R/O cough TECHNIQUE: Imaging protocol: XR of the chest, 2 views. COMPARISON: CR CHEST 2 VIEWS PA,LAT 09/02/2017 3:02 PM FINDINGS: Lungs: Lung gama are clear. No infiltrates. Pleural space: No pleural effusion. No pneumothorax. Heart/Mediastinum: Heart size normal. No mediastinal widening. Pulmonary vaculature normal. No tracheal shift. Bones/joints: No acute osseous abnormalities are identified. IMPRESSION: No acute thoracic process. Dictated and Authenticated by: Jefferson Bhardwaj MD. Ordering:AURELIO Julian MD
[2018-06-28] MEDS: Normal Saline 1,000 ML 1000 ML IV (19:00)
[2018-06-28 19:16] VITALS: BP 108/63; PULSE 108; RESP 16; TEMP 38.3; O2SAT 100
--- NOTE | 2018-06-28 19:50 | DI.CT_ITS ---
SYMPTOM/DIAGNOSIS: POST OP APPENDECTOMY, NOW FEVER ABDOMEN AND PELVIC CT: The study was carried out with oral contrast enhancement. The lung bases are clear. The heart is not enlarged. The liver is normal. There is a 9 mm. calcified gallstone in the gallbladder lumen. There is no evidence of biliary obstruction or acute cholecystitis. The pancreas, spleen and adrenals are normal. The kidneys are unremarkable. The visualized portions of the distal esophagus and stomach are unremarkable. The small bowel is normal with no evidence of obstruction. There is diffuse mild colonic wall thickening consistent with colitis. A moderate quantity of colonic stool is evident suggesting concomitant constipation. Surgical sutures are noted along the medial base of the cecum consistent with the patient's prior appendectomy. The bladder is unremarkable. The reproductive organs as visualized are unremarkable. There is no free air or fluid in the intraperitoneal space. No acute bony abnormality is seen. The soft tissues are unremarkable. There is no evidence of an aortic aneurysm. There is no evidence of adenopathy. SUMMARY: Mild diffuse colonic wall thickening suggests the possibility of colitis. There is no evidence of a bowel perforation or abscess. Also there is a moderate quantity of stool in the colon suggesting constipation. A 3.9 mm. calcified gallstone is noted in the gallbladder. There is no evidence of cholecystitis or biliary obstruction.
--- NOTE | 2018-06-28 20:00 | DI.VRAD_ITS ---
EXAM: CT Abdomen and Pelvis Without Contrast EXAM DATE/TIME: 06/28/2018 7:25 PM CLINICAL HISTORY: 38 years old, male; Signs and symptoms; Prior surgery; Surgery date: 3-7 days post-operative; Surgery type: S/P appe on Thursday. Fever, no abd pain TECHNIQUE: Imaging protocol: Axial computed tomography images of the abdomen and pelvis without contrast. Coronal and sagittal reformatted images were created and reviewed. Radiation optimization: All CT scans at this facility use at least one of these dose optimization techniques: automated exposure control; mA and/or kV adjustment per patient size (includes targeted exams where dose is matched to clinical indication); or iterative reconstruction. COMPARISON: CT ABDOMEN PELVIS W 06/22/2018 5:20 PM FINDINGS: Lungs: Visualized lung bases are clear. Heart: Heart size normal. ABDOMEN: Liver: Normal size and contour. No mass lesions. Gallbladder and bile ducts: 9 mm calcified gallstone in the gallbladder lumen. No CT signs of cholecystitis or biliary obstruction. Pancreas: Normal. No inflammatory changes or ductal dilation. Spleen: Normal. No splenomegaly. Adrenals: Normal. No adrenal mass. Kidneys and ureters: Normal. No hydronephrosis or hydroureter. No urinary tract stones are identified. Stomach and bowel: The visualized distal esophagus and stomach are normal. The small bowel is normal with no evidence of obstruction. Diffuse mild colonic wall thickening consistent with colitis. There is also moderate colonic stool present suggesting an underlying element of constipation. Appendix: Surgical sutures along the medial base of the cecum suggesting prior appendectomy. PELVIS: Bladder: Unremarkable as visualized. Reproductive: Unremarkable as visualized. ABDOMEN and PELVIS: Intraperitoneal space: No free fluid or air. Bones/joints: No acute osseous abnormalities. Soft tissues: Unremarkable. Vasculature: Normal. No abdominal aortic aneurysm. Lymph nodes: No adenopathy. IMPRESSION: 1. Mild diffuse colonic wall thickening suggesting colitis. No evidence of bowel perforation or abscess. 2. Moderate colonic stool suggesting an element of constipation. 3. 9 mm calcified gallstone without CT evidence of cholecystitis or biliary obstruction. Dictated and Authenticated by: Jefferson Bhardwaj MD. Ordering:AURELIO Julian MD
--- NOTE | 2018-06-28 20:17 | W.PM.PROGNOT ---
Date of Service Date of service: 06/28/18 Time of Service: 20:17 Assessment and Plan (1) Appendicitis, acute: Current visit: No Status: Acute (2) GERD (gastroesophageal reflux disease): Current visit: No Status: Chronic taking NSAID's for postOp pain will check for H. pylori (3) Gallstones: Current visit: No Status: Acute will address in office father had his GB taken out (4) SVT (supraventricular tachycardia): Current visit: No Status: Chronic (5) Fever: Current visit: No Status: Acute (6) Elevated WBC count: Current visit: No Status: Acute CT- no abcess lg amount of stool thickening of wall of colon pt states stools are solid check for C. diff cont probiotics. f/u (7) Colon wall thickening: Current visit: No Status: Acute no specific check for c. diff Subjective Interval history since last seen: pt was running high temp at home and came into ED. No cough. Did have swollen uvula for a few days post OP. Tolerating PO's. no N/V. darrin reg. diet. No cough. Minimal abdominal pain. states he was having diarrhea for 3 days after surgery. currently bowels are solid. He has no abdominal pain. No has no pain or burning w/ urination. He has no leg pain or swelling He dos have a gallstone. He does have a hx of reflux Dx. He is on no meds for this. He has been taking ibuprofen for pain- reflux is acting up. Exam Chest Chest: normal inspection of the chest Resp Effort & Inspection: normal respiratory effort and able to speak in complete sentences Auscultation: clear to auscultation bilaterally, no rales, no rhonchi and no wheezes GI Other: incision c/d/i. good BS. no distention. minimal pain at incision site. no abdominal pain. He did have diarrhea for 3 days after surgery. He says bowels are nl at this time. no blood. Objective Objective Clinical Data: Abnormal lab results 06/28/18 06/28/18 Range/Units 17:27 17:27 WBC 14.34 H (4.4-10.8) k/cumm Plt Count 101 L (130-400) x1000/uL MPV 12.7 H (8.0-11.0) fL Absolute Neutrophils 12.91 H (1.2-6.7) k/cumm Absolute Lymphocytes 0.66 L (1.2-3.4) k/cumm Glucose 104 H (70-100) mg/dL Vital Signs Temperature 38.3 C H 06/28/18 19:16 Temperature Source Temporal Artery Scan 06/28/18 19:16 Pulse 108 H 06/28/18 19:16 Respiratory Rate 16 06/28/18 19:16 Respiratory Effort 06/28/18 16:51 Blood Pressure 108/63 06/28/18 19:16 Pulse Oximetry 100 06/28/18 19:16 Oxygen Delivery Method Room Air 06/28/18 19:16 Oxygen Flow Rate 0 06/28/18 19:16 Pain Level 0 06/28/18 16:47 Comment 06/28/18 19:16 Intake & Output 06/27/18 06/28/18 06/28/18 23:59 11:59 23:59 Weight 74.843 kg Laboratory Results WBC 14.34 k/cumm (4.4-10.8) H 06/28/18 17:27 RBC 5.86 m/cumm (4.50-6.00) 06/28/18 17:27 Hgb 17.1 g/dL (13.5-17.5) 06/28/18 17:27 Hct 48.2 % (40.0-50.0) 06/28/18 17:27 MCV 82.3 fL (80-95) 06/28/18 17:27 MCH 29.2 pg (27.0-33.0) 06/28/18 17:27 MCHC 35.5 g/dL (32.0-36.0) 06/28/18 17:27 RDW 13.2 % (11.8-14.1) 06/28/18 17:27 Plt Count 101 x1000/uL (130-400) L 06/28/18 17:27 MPV 12.7 fL (8.0-11.0) H 06/28/18 17:27 Immature Gran % 0.2 06/28/18 17:27 Neutrophils % 90.0 06/28/18 17:27 Lymphocytes % 4.6 06/28/18 17:27 Monocytes % 4.8 06/28/18 17:27 Eosinophils % 0.3 06/28/18 17:27 Basophils % 0.1 06/28/18 17:27 Absolute Neutrophils 12.91 k/cumm (1.2-6.7) H 06/28/18 17:27 Absolute Lymphocytes 0.66 k/cumm (1.2-3.4) L 06/28/18 17:27 Absolute Monocytes 0.69 k/cumm (0.11-0.7) 06/28/18 17:27 Absolute Eosinophils 0.04 k/cumm (0.0-0.7) 06/28/18 17:27 Absolute Basophils 0.01 k/cumm (0.0-0.2) 06/28/18 17:27 Sodium 137 mmol/L (136-145) 06/28/18 17:27 Potassium 3.8 mmol/L (3.5-5.1) 06/28/18 17:27 Chloride 101 mmol/L (98-107) 06/28/18 17:27 Carbon Dioxide 26.9 mmol/L (21.0-32.0) 06/28/18 17:27 Anion Gap 9.1 mmol/L (3-11) 06/28/18 17:27 BUN 15 mg/dL (7-18) 06/28/18 17:27 Creatinine 1.10 mg/dL (0.70-1.30) 06/28/18 17:27 Estimated GFR/1.73 m2 >= 60.00 (mL/min/1.73m2) 06/28/18 17:27 Glucose 104 mg/dL (70-100) H 06/28/18 17:27 Calcium 9.7 mg/dL (8.5-10.1) 06/28/18 17:27 Total Bilirubin 0.9 mg/dL (0.2-1.0) 06/28/18 17:27 AST 19 U/L (15-37) 06/28/18 17:27 ALT 36 U/L (12-78) 06/28/18 17:27 Alkaline Phosphatase 78 U/L (46-116) 06/28/18 17:27 Total Protein 7.1 g/dL (6.4-8.2) 06/28/18 17:27 Albumin 4.2 g/dL (3.4-5.0) 06/28/18 17:27 Lipase 247 U/L (73-393) 06/28/18 17:27 Urine Color Yellow (Yellow) 06/28/18 17:03 Urine Clarity Clear 06/28/18 17:03 Urine pH 7.0 (5-8) 06/28/18 17:03 Ur Specific [place] 1.010 (1.005-1.025) 06/28/18 17:03 Urine Protein Negative mg/dL (Negative) 06/28/18 17:03 Urine Ketones Negative mg/dL (Negative) 06/28/18 17:03 Urine Blood Negative (Negative) 06/28/18 17:03 Urine Nitrite Negative (Negative) 06/28/18 17:03 Urine Bilirubin Negative (Negative) 06/28/18 17:03 Urine Urobilinogen 0.2 EU/dL (Up TO 0.2) 06/28/18 17:03 Ur Leukocyte Esterase Negative (Negative) 06/28/18 17:03 Urine Glucose Negative mg/dL (Negative) 06/28/18 17:03
[2018-06-28 20:44] VITALS: TEMP 38.9
[2018-06-28] MEDS: Ketorolac 30 MG/ML VIAL IVP (21:01)
[2018-06-28 21:08] VITALS: TEMP 37.9
[2018-07-01 13:33] LABS: Helicobacter pylori Ag, Feces Negative (NEGAT)
== END 2018-06-28 21:10 | disposition home or self-care (01) ==
PROVIDERS: Surgery; Emergency Provider Student in an Organized Health Care Education/Training Program; PCP Nurse Practitioner Family
DX: A04.72 Enterocolitis due to Clostridium difficile, not specified as recurrent (principal); R50.9 Fever, unspecified; K83.1 Obstruction of bile duct
CPT/HCPCS: 80053; 83690; 87338; 96361; 96374; 99285; NC; 71046; 74176; 81003; 85025; 87324; 99284; J1885

== ENCOUNTER 2019-01-31 17:40 | Emergency (ER) | payer OTHER, SELFPAY ==
[2019-01-31] VITALS (32 sets, daily range): BP systolic 103–129; BP diastolic 56–69; PULSE 76–124; RESP 12–27; TEMP 36.7; O2SAT 94–99
--- NOTE | 2019-01-31 17:54 | ED.GENADUL_ITS ---
Discharge Plan Disposition Patient Disposition: HOME Condition: Good Discharge Details Chief Complaint: Chest Pain Clinical Impression: Atypical chest pain Primary Care Provider: Caprice Cobos ED Provider: Rima Lozada Home Meds and New Rx's Prescriptions: Continued magnesium 200 mg tablet 200 mg PO PRN RF: 0 ibuprofen 600 mg tablet 600 mg PO Q6H PRN (Reason: pain) Qty: 30 RF: 0 Discharge Instructions Instructions: Chest Pain (ED) Additional Instructions: Encourage hydration. You may use Tylenol and/or ibuprofen as needed for di scomfort. Please follow-up with primary care in 1 week for reevaluation. If you develop new or worsening symptoms please seek care urgently today. Referrals: Caprice Cobos [Primary Care Provider] - Medical Decision Making <Eliel Walker DO - Last Filed: 01/31/19 18:00> EKG 17: 46 Rate 116, intervals normal, sinus tachycardia, no significant ST elevations or depressions, mild T wave flattening good lead III. RSR prime in V1, no evidence of STEMI. No epsilon or delta wave. <JADYN Sim - Last Filed: 02/01/19 00:10> Patient 39-year-old male presents today with chief complaint of chest pain that began approximate hour and half prior to arrival. He reports that while he was carrying wood, he had a sudden onset of left-sided chest pain. Patient is left- hand dominant and was carrying wood in this arm. Has not had pain like this historically. States that initially, the pain was in the left shoulder rating down the left arm. However, that pain subsided he developed pain on the left side of his chest that radiated towards the right described at as a burning sensation. Denies feeling short of breath. No palpitations. Patient does have history of SVT which he underwent an ablation several years ago. Did not have any palpitations that he has had historically with his SVT. Denies any lightheadedness. No recent travel. No leg pain. On exam, patient is resting comfortably. He does appear very anxious, particularly whenever receiving any medical care. He is resting much more comfortably when he is just visiting with his brother. Becomes fidgety and shaky when nursing staff or myself is in the room. She went rest, his heart rates in the 80s but elevates into the 1 teens when we are in the room. Normal cardiovascular exam. Lungs are clear. No pedal edema. Negative Homans sign bilaterally. Given patient's history and current complaints, I feel is less likely to be pulmonary embolism. Did consider ACS. Also considered other pulmonary source, patient is rather thin and did consider spontaneous pneumothorax, will obtain chest x-ray. No personal or family history of cardiac disease, no sudden cardiac . Given his age and that he seems to be an otherwise healthy gentleman with low risk factors, I find ACS unlikely but plan to evaluate with troponin and EKG. Pain is not reproducible with palpation about the chest but he does have worsening pain with movement. Chest X-ray reviewed by radiologist: FINDINGS: Lungs: Unremarkable. No consolidation. Pleural space: Unremarkable. No pleural effusion. No pneumothorax. Heart/Mediastinum: Unremarkable. No cardiomegaly. Bones/joints: Unremarkable. IMPRESSION: No acute findings. Reviewed labs. No leukocytosis. Troponin is minimally low at 3.3 which is baseline for the patient. Troponin is less than 0.05. Labs are otherwise unremarkable. I discussed this findings with the patient. At this point, the burning that was across his chest has been improving. He does report this pain lasted for least an hour and a half prior to beginning to resolve. Slow re solution of symptoms. He declined any type of analgesics or other medication for his symptoms. Patient was also offered an anxiolytic given his presenting anxious state which he declined. Given The patient time of onset, plan for repeat troponin and EKG. Repeat troponin remains less than 0.05. EKG remains unchanged, this was reviewed by Dr. Walker. Discussed these findings with the patient. He reports feeling completely improved. Is resting comfortably. Eating [place] food with his brother. No medication at this time the patient is having any emergent etiology. Plan for discharge home follow-up with primary care. He was given strict return precautions. All his questions and concerns were addressed and is agreement this plan. HPI <Eliel Walker DO - Last Filed: 01/31/19 18:00> General Date/Time Provider Initiated Documentation: 01/31/19 17:54 . Related Data Home Medications Medication Instructions Recorded Confirmed ibuprofen 600 mg PO Q6H PRN #30 tab 06/23/18 01/31/19 magnesium 200 mg tablet 200 mg PO PRN tab 07/01/18 01/31/19 Previous Rx's Medication Instructions Recorded ibuprofen 600 mg PO Q6H PRN #30 tab 06/23/18 Allergies Allergy/AdvReac Type Severity Reaction Status Date / Time No Known Allergies Allergy Verified 01/31/19 17:51 <JADYN Sim - Last Filed: 02/01/19 00:10> General Mode of arrival: ambulatory . Limitations to Documentation: no limitations . Information obtained by: patient and RN notes reviewed . HPI Narrative: Patient is a 39-year-old [id number] male presenting today with chief complaint of chest pain. He reports that approximately one half prior to arrival, he was carrying wood, when he had an onset of left-sided shoulder pain. He reports that this pain radiated down the left arm and caused some tingling in the left arm. This pain then subsided and he began having a burning sensation that radiated across the left side of his chest towards the right side of his chest. Reports the pain is not worsened by movement. Reports the pain is consistent with movement or when at rest. Denies any shortness of breath. Denies any nausea or vomiting. Denies abdominal pain. No recent travel. Patient has history of SVT he reports he underwent an ablation proximally 7 years ago. He denies recurrence of his symptoms since undergoing that previously. He has been here with palpitations and tachycardia historically. Has long history of hyperkalemia. Denies any palpitations. No shortness of breath.. Pain is not reproducible or exertional in nature General Stated Complaint: Chest Pain WENDY: 2 <JADYN Sim - Last Filed: 02/01/19 00:10> Constitutional Constitutional: Reports as per HPI, Denies chills, Denies fever(s), Denies headache(s), Denies lethargy and Denies poor appetite Eyes Eyes: Denies change in vision ENT Ears, Nose, Mouth, and Throat: Denies dizziness and Denies headache(s) Cardiovascular Cardiovascular: Reports as per HPI, Reports chest pain, Reports chest pain at rest, Reports chest pain with activity, Denies diaphoresis, Denies syncope, Denies rapid heart rate, Denies pedal edema, Denies irregular heart rhythm, Denies lightheadedness, Denies radiating jaw, neck or arm pain, Denies dyspnea and Denies dyspnea on exertion Respiratory Respiratory: Reports as per HPI, Denies chest congestion, Denies cough, Denies pain on inspiration, Denies pain with cough, Denies dyspnea, Denies dyspnea on exertion and Denies wheezing Gastrointestinal Gastrointestinal: Reports as per HPI, Denies abdominal pain, Denies diarrhea, Denies nausea and Denies vomiting Genitourinary Genitourinary: Denies system reviewed and no additional complaints, except as docu (denies change in urinary habits) Musculoskeletal Musculoskeletal: Reports as per HPI and Denies back pain Integumentary/Breasts Skin/Breast: Reports as per HPI and Denies rash Neurologic Neurologic: Reports as per HPI, Denies dizziness, Denies syncope and Denies headache(s) Allergic/Immunologic Allergic/Immunologic: Denies wheezing PFSH <Eliel Walker DO - Last Filed: 01/31/19 18:00> Medical History Appendicitis, acute (Acute) Chronic RLQ pain (Acute) Colon wall thickening (Acute) Elevated WBC count (Acute) Fever (Acute) Gallstones (Acute) GERD (gastroesophageal reflux disease) (Chronic) SVT (supraventricular tachycardia) (Chronic) Surgical History H/O cardiac radiofrequency ablation (Acute) History of appendectomy (Resolved 06/22/18) Dr Yelitza Torres, [facility] History of esophagogastroduodenoscopy (EGD) (Chronic) Social History Smoking/Tobacco Use Status: Never Alcohol Intake: never Substance use type: does not use Do you feel safe at home: Yes Do you feel safe in your relationship?: Yes <JADYN Sim - Last Filed: 02/01/19 00:10> Const General: cooperative, healthy appearing, comfortable, no acute distress, well developed and anxious Nutritional Appearance: average body habitus and well nourished Orientation: alert, awake and oriented x3 HENMT Head: normal to inspection Ears: hearing grossly normal bilaterally Mouth: moist mucous membranes Chest Chest: normal inspection of the chest, normal palpation of entire chest wall and no crepitus Resp Effort & Inspection: normal respiratory effort, able to speak in complete sentences and no respiratory distress Auscultation: clear to auscultation bilaterally, no rales, no rhonchi and no wheezes Cardio Rate: regular rate Rhythm: regular rhythm Heart Sounds: S1 normal and S2 normal GI Inspection: normal to inspection, no edema and non-distended Palpation: soft, no hepatosplenomegaly, not firm, no guarding, not rigid and nontender Auscultation: normal bowel sounds Back/Spine/Pelvis Back: no CVA tenderness Thoracic/Lumbar Spine: thoracic and lumbar spine normal to inspection Skin General skin exam: no rashes or lesions noted Trauma: no lacerations or abrasions Neuro General: alert, awake and oriented x3 Cognition: normal cognition Speech: speech normal Gait: normal gait Extrem General: normal to inspection, normal capillary refill, no pedal edema, no calf tenderness and normal gait Psych Appearance: grossly normal and well kempt Mental Status: mental status grossly normal Speech and Movement: speech and movement normal <JADYN Sim - Last Filed: 02/01/19 00:10> Vital Signs Vital signs: Vital Signs Temperature 36.7 C 01/31/19 17:47 Pulse 114 H 01/31/19 17:47 Respiratory Rate 18 01/31/19 17:47 Blood Pressure 129/66 01/31/19 17:47 Pulse Oximetry 99 01/31/19 17:47 Temperature 36.7 C 01/31/19 17:47 Temperature Source Temporal Artery Scan 01/31/19 17:47 Pulse 114 H 01/31/19 17:47 Respiratory Rate 18 01/31/19 17:47 Respiratory Effort Non-Labored 01/31/19 17:50 Blood Pressure 129/66 01/31/19 17:47 Blood Pressure Position Sitting 01/31/19 17:47 Pulse Oximetry 99 01/31/19 17:47 Oxygen Delivery Method Room Air 01/31/19 17:47 Oxygen Flow Rate 0 01/31/19 17:47 Pain Level 3 01/31/19 17:47
[2019-01-31] MEDS: Normal Saline 1,000 ML 1000 ML IV (18:10)
[2019-01-31 18:31] LABS: Abs Immature Grans 0.01 k/cumm (0.0-0.09); Absolute Basophil Count 0.02 k/cumm (0.0-0.2); Absolute Eosinophil Count 0.03 k/cumm (0.0-0.7); Absolute Lymphocyte Count 1.41 k/cumm (1.2-3.4); Absolute Monocyte Count 0.46 k/cumm (0.11-0.7); Absolute Neutrophil Count 6.58 k/cumm (1.2-6.7); Basophils % 0.2; Eosinophils % 0.4; HCT 46.4 % (40.0-50.0); HGB 16.1 g/dL (13.5-17.5); Immature Grans % 0.1; Lymphocytes % 16.6; Mean Corp. HGB Concentration 34.7 g/dL (32.0-36.0); Mean Corpuscular Hemoglobin 29.2 pg (27.0-33.0); Mean Corpuscular Volume 84.2 fL (80-95); Mean Platelet Volume 12.5 fL (8.0-11.0); Monocytes % 5.4; Neutrophils % 77.3; Platelet Count 109 x1000/uL (130-400); RBC 5.51 m/cumm (4.50-6.00); RBC Distribution Width 12.7 % (11.8-14.1); White Blood Cell Count 8.51 k/cumm (4.4-10.8)
[2019-01-31 18:46] LABS: ALT 24 U/L (16-63); AST 19 U/L (15-37); Albumin 4.3 g/dL (3.4-5.0); Alkaline Phosphatase 75 U/L (46-116); Anion Gap 8.4 mmol/L (3-11); BUN 12 mg/dL (7-18); Bilirubin, Total 0.7 mg/dL (0.2-1.0); CO2 28.6 mmol/L (21.0-32.0); CREATININE 0.95 mg/dL (0.70-1.30); Calcium 9.1 mg/dL (8.5-10.1); Chloride 105 mmol/L (98-107); Glucose 124 mg/dL (74-106); Potassium 3.3 mmol/L (3.5-5.1); Sodium 142 mmol/L (136-145); Total Protein 6.9 g/dL (6.4-8.2)
--- NOTE | 2019-01-31 19:14 | DI.RAD_ITS ---
EXAM: XR CHEST 2V PA LATERAL CLINICAL HISTORY: anterior CP. TECHNIQUE: 2D digital imaging was performed. COMPARISON: XR CHEST 2V PA LATERAL from 06/28/2018 FINDINGS: LUNGS: Clear. No pleural abnormality seen. HEART: Normal. MEDIASTINUM: Normal. OTHER FINDINGS:Normal. IMPRESSION: No acute pulmonary findings.
--- NOTE | 2019-01-31 19:47 | DI.VRAD_ITS ---
PROCEDURE INFORMATION: Exam: XR Chest, 2 Views Exam date and time: 01/31/2019 7:15 PM Age: 39 years old Clinical indication: Other: Anterior cp TECHNIQUE: Imaging protocol: XR of the chest Views: 2 views. COMPARISON: CR XR CHEST 2V PA LATERAL 06/28/2018 6:01 PM FINDINGS: Lungs: Unremarkable. No consolidation. Pleural space: Unremarkable. No pleural effusion. No pneumothorax. Heart/Mediastinum: Unremarkable. No cardiomegaly. Bones/joints: Unremarkable. IMPRESSION: No acute findings. Dictated and Authenticated by: Patrice Spear MD. Ordering:RED Abarca MD
[2019-01-31 19:53] LABS: Troponin I < 0.05 ng/Ml (<0.06)
[2019-01-31 21:37] LABS: Troponin I < 0.05 ng/Ml (<0.06)
== END 2019-01-31 22:10 | disposition home or self-care (01) ==
PROVIDERS: Emergency Provider Physician Assistant; PCP Nurse Practitioner Family
DX: R07.89 Other chest pain (principal); R20.2 Paresthesia of skin; I47.1 Supraventricular tachycardia
CPT/HCPCS: 36415; 80053; 93005; 96360; 99285; 71046; 83735; 84484; 85025; 93010

== ENCOUNTER 2019-02-15 14:00 | Outpatient (CLI) | payer OTHER, SELFPAY ==
[2019-02-17 11:07] LABS: Campylobacter PCR Negative (Negative); Salmonella PCR Negative (Negative); Shiga Toxin PCR Negative (Negative); Shigella/Enteroinvasive Ecoli Negative (Negative)
== END 2019-02-15 14:20 ==
PROVIDERS: PCP Nurse Practitioner Family; Visit Provider Nurse Practitioner Family
DX: R19.8 Other specified symptoms and signs involving the digestive system and abdomen (principal)
CPT/HCPCS: 87505; 83630; 87177; 87324

== ENCOUNTER 2019-08-04 10:49 | Outpatient (REF) | payer OTHER, SELFPAY ==
[2019-08-04 20:54] LABS: Calculated LDL 130 mg/dL (<100); Cholesterol 205 mg/dL (<200); HDL Cholesterol 57 mg/dL (40-60); Triglyceride 90 mg/dL (<150)
== END 2019-08-04 11:09 ==
LOC: NCHCN 10:49
PROVIDERS: PCP Nurse Practitioner Family; Visit Provider Physician Assistant
DX: Z00.00 Encounter for general adult medical examination without abnormal findings (principal); Z13.220 Encounter for screening for lipoid disorders
CPT/HCPCS: 80061

== ENCOUNTER 2020-02-09 14:17 | Outpatient (REF) | payer BC, SELFPAY ==
[2020-02-12 12:53] LABS: COVID-19 RT-PCR UVMMC Result Negative (Negative)
== END 2020-02-09 14:37 ==
LOC: LBN 14:17
PROVIDERS: PCP Student in an Organized Health Care Education/Training Program; Visit Provider Nurse Practitioner
DX: R09.81 Nasal congestion (principal); J34.89 Other specified disorders of nose and nasal sinuses
CPT/HCPCS: U0003

== ENCOUNTER 2020-07-13 18:52 | Outpatient (REF) | payer BC, SELFPAY ==
[2020-07-13 18:54] LABS: ALT 28 U/L (16-63); AST 22 U/L (15-37); Albumin 4.2 g/dL (3.4-5.0); Alkaline Phosphatase 88 U/L (46-116); Anion Gap 7.7 mmol/L (3-11); BUN 12 mg/dL (7-18); Bilirubin, Total 1.3 mg/dL (0.2-1.0); CO2 28.3 mmol/L (21.0-32.0); CREATININE 0.9 mg/dL (0.70-1.30); Calcium 9.2 mg/dL (8.5-10.1); Calculated LDL 115 mg/dL (<100); Chloride 106 mmol/L (98-107); Cholesterol 177 mg/dL (<200); Glucose 92 mg/dL (74-106); HDL Cholesterol 48 mg/dL (40-60); Potassium 4.3 mmol/L (3.5-5.1); Sodium 142 mmol/L (136-145); Total Protein 6.8 g/dL (6.4-8.2); Triglyceride 72 mg/dL (<150)
[2020-07-16 09:06] LABS: PSA, Screening 0.7 ng/mL (0.0-2.5)
== END 2020-07-13 18:53 | disposition home or self-care (01) ==
LOC: LBN 18:52
PROVIDERS: PCP Student in an Organized Health Care Education/Training Program; Visit Provider Student in an Organized Health Care Education/Training Program
DX: K21.9 Gastro-esophageal reflux disease without esophagitis (principal); Z13.1 Encounter for screening for diabetes mellitus; E86.0 Dehydration; Z13.220 Encounter for screening for lipoid disorders; N40.0 Benign prostatic hyperplasia without lower urinary tract symptoms; R39.11 Hesitancy of micturition; Z12.5 Encounter for screening for malignant neoplasm of prostate
CPT/HCPCS: 80053; 80061; 84153

== ENCOUNTER → 2021-06-13 01:34 | Outpatient (CLI) | payer BC, SELFPAY ==
--- NOTE | 2021-06-13 06:15 | ETT_ITS ---
APPROVED REPORT Exam: Exercise Treadmill Patient Location: Out-Patient Room/Bed: Stress Nurse: Mara Miranda RN Ordering Provider:BRYANNA MIN, Contact Number: [phone] BMI: 22.29 Baseline Rhythm: Sinus Rhythm Indications: Atypical Chest Pain Medical History Medical History: cardiac radiofrequency ablation, SVT, GERD, Anxiety Cardiac Medications: Famotidine, Lansoprazole Allergies: None Cardiac Risk Factors: Family history, HLD Previous Cardiac Procedures: Ablation 2012 Pretest Chest Pain Characteristics: None Exercise History: Physically active Physical Disabilities: None Lung Sounds: Clear Heart Sounds: Regular Stress Test Details Test: Exercise stress testing was performed using a Connor protocol. Rest Stress HR Resting HR Supine: 82 bpm Max Heart Rate (APMHR): 181 bpm Resting HR Standin bpm Target HR (85% APMHR): 153 bpm Max HR Achieved: 167 bpm % of APMHR: 92 Recovery HR: 105 bpm HR response to stress: Normal HR response to stress BP Resting BP Supine: 110/60 mmHg Resting BP Standin/62 mmHg Max BP: 148/52 mmHg Recovery BP: 122/58 mmHg BP response to stress: Normal blood pressure response to stress. ECG Resting ECG: Sinus Rhythm Ectopy: Rare PAC Comment: flipped t wave aVL Stress ECG: Sinus Tachycardia ST Change: No significant ST segment changes noted Arrhythmia: Rare PVC, Rare PAC Recovery ECG: Sinus Rhythm Recovery ST Change: No significant ST segment changes noted Recovery Arrhythmia: Rare PAC and Rare PVC Clinical Reason for Termination: Fatigue, Dyspnea Stress Symptoms: Dyspnea, General Fatigue Exercise duration: 5 min51 sec Highest Stage Reached: Stage 2: 2.5 mph at 12% grade. Exercise capacity: 7.05 METs Angina Score: None Hernandez Treadmill Score: 4.1 Rate Pressure Product: 42550 Stress ECG Conclusion 1. The resting electrocardiogram showed right axis deviation 2. Patient exercised on the Connor protocol and completed a workload of 7.05 METS, limited by fatigue 3. Normal heart rate and blood pressure response to exercise. The patient achieved 92% of predicted heart rate for age 4. Was no electrocardiographic evidence of myocardial ischemia 5. There were rare atrial and ventricular ectopic beats Hernandez Treadmill Score is 4.1 which is Moderate risk. Stress Test Summary STAGE Time (mins) Speed (mph) Grade (%) HR BP SYMPTOMS METS Supine 82 110/60 Standing 111 106/62 O2 98% 1 3 1.7 10 122 130/68 O2 98% 4.6 2 6 2.5 12 158 148/52 O2 98% Mild shortness of breath, palpitations 7 1 min recovery 128 142/50 O2 98% Symptoms resolved 3 min recovery 107 122/58 O2 98% 6 min recovery 110 120/62 O2 98%
== END ==
PROVIDERS: PCP Student in an Organized Health Care Education/Training Program; Visit Provider Student in an Organized Health Care Education/Training Program
DX: I47.1 Supraventricular tachycardia (principal); R07.89 Other chest pain; R68.89 Other general symptoms and signs; Z98.890 Other specified postprocedural states
CPT/HCPCS: 93017

== ENCOUNTER 2022-07-29 09:35 | Outpatient (CLI) | payer BC, SELFPAY ==
--- NOTE | 2022-07-29 09:30 | RT.EKG_ITS ---
APPROVED REPORT Exam: Resting ECG Reason for Exam: cardiac evaluation Patient Location: O HR:65 bpm ECG Measurements Heart Rate 65 AXIS SD 155 P 81 QRSd 94 QRS 93 QT 363 T 58 QTc 378 Conclusion Sinus rhythm...normal P axis, V-rate 50- 99 Normal Electrocardiogram
== END 2022-07-29 09:36 | disposition home or self-care (01) ==
LOC: DI.CARD 09:35
PROVIDERS: PCP Student in an Organized Health Care Education/Training Program; Visit Provider Internal Medicine Cardiovascular Disease
DX: I47.1 Supraventricular tachycardia (principal); R07.89 Other chest pain; Z98.890 Other specified postprocedural states; Z13.6 Encounter for screening for cardiovascular disorders
CPT/HCPCS: 93010

== ENCOUNTER 2023-02-17 16:09 | Outpatient (REF) | payer OTHER, SELFPAY ==
[2023-02-18 10:48] LABS: COVID-19 PCR Negative (Negative); Influenza A PCR Negative (Negative); Influenza B PCR Negative (Negative); RSV PCR Negative (Negative)
[2023-02-18 10:49] LABS: Source Nasopharynx
== END 2023-02-17 16:10 | disposition home or self-care (01) ==
LOC: LBN 16:09
PROVIDERS: PCP Student in an Organized Health Care Education/Training Program; Visit Provider Student in an Organized Health Care Education/Training Program
DX: J02.9 Acute pharyngitis, unspecified (principal); R68.89 Other general symptoms and signs
CPT/HCPCS: 87637